=== PATIENT | female | born 1975 | race Caucasian/White ===

== ENCOUNTER 2016-05-25 17:42 | Emergency (ER) | payer OTHER ==
[~2016-05-25] VITALS: Ht 152 cm; Wt 113.4 kg
--- NOTE | ~2016-05-25 | EKG ---
[place], [place] ELECTROCARDIOGRAM REPORT NAME: ALINE BAZZI UNIT #: [id number] ROOM: DOCTOR: JANES BROOKS MD BIRTHDATE: [birth year] DOS: 05/25/2016 TIME: 1757 hours. Normal sinus rhythm at 61 beats per minute. The tracing is normal. No previous tracing is available for comparison. JANES BROOKS MD CM:EKGRPT:ELECTROCARDIOGRAM REPORT 1708 JANES BROOKS MD
[~2016-05-25 17:42] MED LIST: AMOXIL500 MG PO; ATARAX25 MG PO; BACTRIM DS 8001 TA1 PO; BACTRIM DS 8001 TAB PO; CLEOCIN150 MG PO; CLINDAMYCIN HC300 MG PO; HYDROCODONE BIT1 T11 PO; LOMOTIL 0.025 M1 TA1 PO; MACROBID100 M1 PO; MEDROL DOSEPAK4 MG PO; MOBIC15 MG PO; MOTRIN800 MG PO; Motrin,Rufen800 MG PO; NKHM PO; NORCO 325 MG-51 TAB PO; NORFLEX100 MG PO; PEN-VEE K500 MG PO; PEPCID20 MG PO; PERIDEX 480 ML480 ML PO; PHENERGAN25 MG RC; PREDNISONE20 MG PO; PYRIDIUM200 M1 PO; REGLAN10 MG PO; TRAMADOL HCL50 MG PO; ULTRAM50 MG PO; VICODIN 500 MG-1 TAB PO; ZITHROMAX250 MG PO; ZOFRAN ODT4 MG SL; ZOFRAN4 MG PO; ZYRTEC10 MG PO
[2016-05-25 18:13] LABS: BASO # 0.1 10*3/uL (0.0-0.1); EOS # 0.4 10*3/uL (0.0-0.4); EOS % 6.1 % (1.0-4.0); HEMATOCRIT 39.6 % (37.0-47.0); HEMOGLOBIN 12.4 g/dl (12.0-16.0); LYMPH # 2.5 10*3/uL (1.3-4.4); LYMPH % 34.1 % (27.0-41.0); MEAN CORPUSCULAR HGB 23.5 pg (27.0-31.0); MEAN CORPUSCULAR HGB CONC 31.3 g/dl (33.0-37.0); MEAN PLATELET VOLUME 9.3 fl (9.6-12.3); MONO # 0.5 10*3/uL (0.1-1.0); MONO % 6.6 % (3.0-9.0); NEUT # 3.8 10*3/uL (2.3-7.9); NEUT % 52.1 % (47.0-73.0); PLATELET COUNT AUTOMATED 226 10*3/uL (130-400); RED BLOOD COUNT 5.28 10*6/uL (4.10-5.10); RED CELL DISTRI WIDTH 14.8 % (0-14.5); WHITE BLOOD COUNT 7.3 10*3/uL (4.8-10.8)
[2016-05-25 18:29] LABS: ALBUMIN 3.5 gm/dl (3.1-4.5); ALKALINE PHOSPHATASE 62 U/L (45-117); BILIRUBIN, TOTAL 0.3 mg/dl (0.2-1.0); BUN 16 mg/dl (7-24); CARBON DIOXIDE 27 mmol/L (21-32); CHLORIDE 109 mmol/L (98-107); EST GLOM FILT AFRICAN AMERICAN > 60 ml/min; GLUCOSE 106 mg/dL (65-99); POTASSIUM 4.3 mmol/L (3.5-5.1); SGOT/AST 16 IU/L (3-35); SGPT/ALT 38 U/L (12-78); SODIUM 144 mmol/L (136-145); TOTAL PROTEIN 7.1 gm/dL (6.4-8.2)
[2016-05-25 18:38] VITALS: BP 165/96
== END 2016-05-25 19:18 | disposition home or self-care (01) ==
LOC: ED 17:42
PROVIDERS: Nurse Practitioner Family
DX: R07.89 Other chest pain (principal); Z98.890 Other specified postprocedural states; Z98.51 Tubal ligation status

== ENCOUNTER 2016-05-30 17:38 | Emergency (ER) | payer OTHER ==
[~2016-05-30] VITALS: Ht 157.4 cm; Wt 103.0 kg
[2016-05-30 17:46] VITALS: BP 175/87
[2016-05-30] MEDS ORDERED: ZOFRAN4 MG PO (18:51)
== END 2016-05-30 18:59 | disposition home or self-care (01) ==
LOC: ED 17:38
DX: G43.909 Migraine, unspecified, not intractable, without status migrainosus (principal); R03.0 Elevated blood-pressure reading, without diagnosis of hypertension; Z90.49 Acquired absence of other specified parts of digestive tract

== ENCOUNTER 2016-06-08 12:46 | Inpatient (IN) | payer OTHER ==
[2016-06-08] VITALS (9 sets, daily range): BP systolic 127–185; BP diastolic 70–92
[~2016-06-08] VITALS: Ht 157.5 cm; Wt 103.2 kg
--- NOTE | ~2016-06-08 | ST ---
[place], [place] EXERCISE STRESS TEST REPORT NAME: ALINE BAZZI UNIT #: [id number] ROOM: [facility] DOCTOR: DELROY BOTELLO MD BIRTHDATE: [birth year] DOS: PHARMACOLOGIC STRESS TEST INDICATIONS: Atypical chest pain. PROCEDURE: The patient was given a rapid infusion of regadenoson 0.4 mg intravenously followed by a saline flush. She experienced a bad taste in her mouth and some chest squeezing with the infusion. Her resting heart rate of 61 maribel to 91. The resting blood pressure of 168/90 fell to 144/92. Her electrocardiogram was normal at rest. With the infusion, no further changes occurred. 40 seconds after the infusion, she was given regadenoson intravenously. IMPRESSION: 1. Well tolerated infusion of regadenoson. 2. Radionuclide injected. Please see the separately reported imaging results for further details of the patient's stress test results. DELROY BOTELLO MD CM:STRESS:EXERCISE STRESS TEST REPORT 1306 0102 DELROY BOTELOL MD
--- NOTE | ~2016-06-08 | CON ---
[place], [place] REPORT OF CONSULTATION NAME: JULIA HARRIS UNIT #: [id number] ROOM: [facility] DOCTOR: DELROY BOTELLO MD BIRTHDATE: [birth year] DOS: 06/08/2016 REASON FOR CONSULTATION: Chest pain. HISTORY OF PRESENT ILLNESS: Julia Harris is a 49-year-old woman who has a history of deafness. She reportedly had scarlet fever as an and this resulted in hearing loss. She communicates by sign language. She was the source of my information and we communicated by riding on a tablet. The patient states that for the last 9 days, she has had a squeezing pain in her chest. It radiates into her back. It is not associated with any other symptoms and she specifically denies dyspnea, diaphoresis or pleuritic pains. Nothing makes it better or worse and it has been persistent since its onset. She was scheduled to have an outpatient stress test by Dr. Paulino, but today her pain became more intense and therefore she came to the Emergency Room. In the Emergency Room, her initial cardiac biomarkers were normal and her electrocardiogram showed no acute changes. The patient denies any previous history of heart disease, high blood pressure, diabetes mellitus or stroke. FAMILY HISTORY: Positive for several family members having cancer. There are some family members who had heart disease at a relatively young age on her mother's side. REVIEW OF SYSTEMS: The patient denies diplopia or loss of vision. She denies focal weakness. She denies lightheadedness or syncope. She denies trouble breathing, nausea or vomiting. She denies fevers, chills, sweats or recent weight change. She denies any bleeding from any site. She denies any peripheral edema. The remainder of the review of systems is negative except as noted above. MEDICATIONS PRIOR TO ADMISSION: None. ALLERGIES: The patient has no known drug allergies. SOCIAL HISTORY: The patient does not drink alcohol or consume cigarettes. PHYSICAL EXAMINATION: GENERAL: The patient is an overweight white female who is awake, alert and oriented. VITAL SIGNS: Pulse is 69 and regular, blood pressure is 151/86. She is afebrile, oxygen saturation is 100% on room air. She weighs 103.2 kilograms with a body mass index of 41.6. HEENT: Normocephalic, atraumatic. Extraocular muscles are intact. Sclerae are clear. Pupils are equal, round and react to light. The oral mucosa is moist. Tongue is midline. NECK: Supple. She has no jugular distention. Carotids are full without bruits. She has no neck or supraclavicular masses. There was no thyromegaly. LUNGS: Respirations are unlabored. Chest is clear to auscultation and percussion. She has no presacral edema. She does have some anterior chest wall [place], [place] REPORT OF CONSULTATION NAME: JULIA HARRIS UNIT #: [id number] ROOM: [facility] DOCTOR: DELROY BOTELLO MD BIRTHDATE: [birth year] tenderness, which reproduces her pains. There is no point tenderness present. CARDIOVASCULAR: Her heart has a regular rhythm with a soft S4 gallop, but no S3 or murmur. The PMI is not displaced. She has no precordial heave, lift or thrill. ABDOMEN: Soft and normally active without masses, organomegaly or bruits. EXTREMITIES: Showed no edema. Peripheral pulses are easily palpable bilaterally. LABORATORY DATA: I reviewed her electrocardiogram, which showed sinus rhythm and was a normal tracing. Chest x-ray shows normal heart size. The lungs are clear without any infiltrates. Initial troponin levels are normal. Hemoglobin is 13.2, white count 8300, platelet count 260,000. Sodium is 141, potassium 3.9, BUN and creatinine are 7 and 1.07 respectively. Glucose is 71. IMPRESSION: 1. Precordial chest pain, which is partially exacerbated by palpation of the anterior chest. Most likely, this represents a musculoskeletal pain, especially since it has been present for over a week, almost continuously. 2. Family history of heart disease. 3. No obvious risk factors aside from the above. 4. 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 PLAN: We will follow serial enzymes overnight and continue her on a school lunch monitor. If there are no problems, then we will plan on an exercise myocardial perfusion study in the morning. Further recommendations depend upon the results of the stress test. We thank Dr. Paulino in the hospitalist group for asking our advice regarding her assessment. DELROY BOTELLO MD CM:CONSTR:REPORT OF CONSULTATION 1808 06/10/16 0959 interface
--- NOTE | ~2016-06-08 | ST ---
[place], [place] EXERCISE STRESS TEST REPORT NAME: ALINE BAZZI UNIT #: [id number] ROOM: 501 DOCTOR: DELROY BOTELLO MD BIRTHDATE: [birth year] DOS: 06/09/2016 CARDIOLOGY PROGRESS NOTE SUBJECTIVE: The patient was seen today, 06/09/2016, just prior to her stress test. The patient had no further problems overnight. Vital signs remained stable with mild hypertension. Hemoglobin was 11.9. Cardiac biomarkers were normal. PHYSICAL EXAMINATION: VITAL SIGNS: On exam today, her pulse is 61 and regular, blood pressure is 168/90. HEENT: Normocephalic, atraumatic. NECK: Her neck is supple. She has no jugular distention. Carotids are full. LUNGS: Respirations are unlabored. Her chest is clear to auscultation and percussion. HEART: Her heart has a regular rhythm with a fourth heart sound, but no third heart sound or murmur. EXTREMITIES: Showed no edema. IMPRESSION: Atypical chest pain. PLAN: We will proceed with a pharmacologic stress test. An exercise test had been scheduled, but no one was available to do sign language for her while she was on the treadmill and so we could not adequately instruct her about treadmill exercise. A pharmacologic stress test was felt to be safer. We will review the results of the stress test when available and make further recommendations at that time. I thank the hospitalist service for asking our advice regarding her care. DELROY BOTELLO MD CM:STRESS:EXERCISE STRESS TEST REPORT 1305 0056 DELROY BOTELLO MD
[2016-06-08 13:39] LABS: BASO # 0.1 10*3/uL (0.0-0.1); BASO % 1.4 % (0.0-1.0); EOS # 0.5 10*3/uL (0.0-0.4); EOS % 5.8 % (1.0-4.0); HEMATOCRIT 43.1 % (37.0-47.0); HEMOGLOBIN 13.2 g/dl (12.0-16.0); LYMPH # 3.9 10*3/uL (1.3-4.4); LYMPH % 47.3 % (27.0-41.0); MEAN CELL VOLUME 75.9 fl (81.0-99.0); MEAN CORPUSCULAR HGB 23.2 pg (27.0-31.0); MEAN CORPUSCULAR HGB CONC 30.6 g/dl (33.0-37.0); MEAN PLATELET VOLUME 9.8 fl (9.6-12.3); MONO # 0.7 10*3/uL (0.1-1.0); MONO % 7.8 % (3.0-9.0); NEUT # 3.1 10*3/uL (2.3-7.9); NEUT % 37.5 % (47.0-73.0); PLATELET COUNT AUTOMATED 260 10*3/uL (130-400); RED BLOOD COUNT 5.68 10*6/uL (4.10-5.10); RED CELL DISTRI WIDTH 14.6 % (0-14.5); WHITE BLOOD COUNT 8.3 10*3/uL (4.8-10.8)
[2016-06-08 13:59] LABS: ALBUMIN 3.7 gm/dl (3.1-4.5); ALKALINE PHOSPHATASE 69 U/L (45-117); BILIRUBIN, TOTAL 0.4 mg/dl (0.2-1.0); BUN 7 mg/dl (7-24); CARBON DIOXIDE 25 mmol/L (21-32); CHLORIDE 105 mmol/L (98-107); EST GLOM FILT AFRICAN AMERICAN > 60 ml/min; GLUCOSE 71 mg/dL (65-99); POTASSIUM 3.9 mmol/L (3.5-5.1); SGOT/AST 48 IU/L (3-35); SGPT/ALT 62 U/L (12-78); SODIUM 141 mmol/L (136-145); TOTAL PROTEIN 7.5 gm/dL (6.4-8.2)
[2016-06-08 14:03] LABS: TROPONIN I < 0.015 ng/ml (<0.5)
[2016-06-08 18:06] LABS: URINE AMPHETAMINES < 1000 (1000ng/ml); URINE BARBITURATES < 200 (200ng/ml); URINE COCAINE < 300 (300ng/ml)
[2016-06-08 18:25] LABS: CKMB 1.4 ng/ml (0.5-3.6); CPK 217 U/L (26-192); TROPONIN I < 0.015 ng/ml (<0.5)
[2016-06-09] VITALS: BP 149/79
[2016-06-09 00:56] LABS: CKMB 1.6 ng/ml (0.5-3.6); CPK 190 U/L (26-192); TROPONIN I < 0.015 ng/ml (<0.5)
[2016-06-09 06:03] LABS: BASO # 0.1 10*3/uL (0.0-0.1); BASO % 1.2 % (0.0-1.0); EOS # 0.6 10*3/uL (0.0-0.4); EOS % 8.7 % (1.0-4.0); HEMATOCRIT 38.5 % (37.0-47.0); HEMOGLOBIN 11.9 g/dl (12.0-16.0); LYMPH # 3.1 10*3/uL (1.3-4.4); LYMPH % 46.5 % (27.0-41.0); MEAN CELL VOLUME 75.3 fl (81.0-99.0); MEAN CORPUSCULAR HGB 23.3 pg (27.0-31.0); MEAN CORPUSCULAR HGB CONC 30.9 g/dl (33.0-37.0); MEAN PLATELET VOLUME 10.1 fl (9.6-12.3); MONO # 0.5 10*3/uL (0.1-1.0); NEUT # 2.4 10*3/uL (2.3-7.9); NEUT % 36.4 % (47.0-73.0); PLATELET COUNT AUTOMATED 214 10*3/uL (130-400); RED BLOOD COUNT 5.11 10*6/uL (4.10-5.10); RED CELL DISTRI WIDTH 14.4 % (0-14.5); WHITE BLOOD COUNT 6.6 10*3/uL (4.8-10.8)
[2016-06-09 06:04] LABS: CKMB 0.9 ng/ml (0.5-3.6); CPK 149 U/L (26-192)
[2016-06-09 06:06] LABS: TROPONIN I < 0.015 ng/ml (<0.5)
[2016-06-09 06:13] LABS: HEMOGLOBIN A1c 5.2 % (4.8-5.6)
[2016-06-09 06:28] LABS: PROTHROMBIN TIME 10.2 SECONDS (9.0-12.4)
[2016-06-09 06:30] LABS: ALBUMIN 3.2 gm/dl (3.1-4.5); ALKALINE PHOSPHATASE 57 U/L (45-117); BILIRUBIN, TOTAL 0.3 mg/dl (0.2-1.0); BUN 11 mg/dl (7-24); CARBON DIOXIDE 26 mmol/L (21-32); CHLORIDE 108 mmol/L (98-107); CHOLESTEROL 178 mg/dL (<200); EST GLOM FILT AFRICAN AMERICAN > 60 ml/min; GLUCOSE 95 mg/dL (65-99); HDL CHOLESTEROL 30 mg/dl (40-60); LDL CHOLESTEROL 107 mg/dL (9-159); MAGNESIUM 2.1 mg/dL (1.5-2.1); PHOSPHOROUS 3.8 mg/dL (2.5-4.9); POTASSIUM 3.6 mmol/L (3.5-5.1); SGOT/AST 26 IU/L (3-35); SGPT/ALT 45 U/L (12-78); SODIUM 143 mmol/L (136-145); TOTAL PROTEIN 6.1 gm/dL (6.4-8.2); TRIGLYCERIDES 207 mg/dl (<150); VLDL CHOLESTEROL 41 mg/dL (6-40)
[2016-06-09 07:14] LABS: VITAMIN D, 25-HYDROXY 21.6 ng/mL (30-100)
[2016-06-09 07:15] LABS: FOLIC ACID 7.62 ng/mL (>5.38)
[2016-06-09 08:00] VITALS: BP 140/98
[2016-06-09 16:00] VITALS: BP 150/88
[2016-06-09] MEDS ORDERED: HYDR25T PO (17:40)
== END 2016-06-09 18:45 | disposition home or self-care (01) | DRG 305 ==
LOC: ED 12:46 → EDHOLD 15:18 → 5E 15:18
PROVIDERS: Family Medicine; Nurse Practitioner Family
DX: I16.1 Hypertensive emergency (principal); E44.0 Moderate protein-calorie malnutrition; N18.3 Chronic kidney disease, stage 3 (moderate); Z68.41 Body mass index [BMI] 40.0-44.9, adult; I12.9 Hypertensive chronic kidney disease with stage 1 through stage 4 chronic kidney disease, or unspecified chronic kidney disease; G43.909 Migraine, unspecified, not intractable, without status migrainosus; H91.93 Unspecified hearing loss, bilateral; Z90.49 Acquired absence of other specified parts of digestive tract; Z98.51 Tubal ligation status; Z98.890 Other specified postprocedural states; Z82.49 Family history of ischemic heart disease and other diseases of the circulatory system; Z83.3 Family history of diabetes mellitus; Z80.8 Family history of malignant neoplasm of other organs or systems

== ENCOUNTER 2016-08-27 11:51 | Inpatient (IN) | payer OTHER ==
[~2016-08-27] VITALS: Ht 157.5 cm; Wt 106.2 kg
[~2016-08-27 11:51] MED LIST changes: +HYDR25T PO
[2016-08-27 12:10] VITALS: BP 155/98
[2016-08-27 12:22] LABS: BASO # 0.1 10*3/uL (0.0-0.1); EOS # 0.5 10*3/uL (0.0-0.4); EOS % 6.6 % (1.0-4.0); HEMOGLOBIN 12.2 g/dl (12.0-16.0); LYMPH % 42.7 % (27.0-41.0); MEAN CELL VOLUME 71.7 fl (81.0-99.0); MEAN CORPUSCULAR HGB 22.4 pg (27.0-31.0); MEAN CORPUSCULAR HGB CONC 31.3 g/dl (33.0-37.0); MEAN PLATELET VOLUME 9.2 fl (9.6-12.3); MONO # 0.5 10*3/uL (0.1-1.0); MONO % 6.8 % (3.0-9.0); NEUT % 42.8 % (47.0-73.0); PLATELET COUNT AUTOMATED 243 10*3/uL (130-400); RED BLOOD COUNT 5.44 10*6/uL (4.10-5.10); WHITE BLOOD COUNT 7.1 10*3/uL (4.8-10.8)
[2016-08-27 12:33] LABS: PROTHROMBIN TIME 10.3 SECONDS (9.0-12.4)
[2016-08-27 12:38] LABS: ALBUMIN 3.7 gm/dl (3.1-4.5); ALKALINE PHOSPHATASE 65 U/L (45-117); BILIRUBIN, TOTAL 0.4 mg/dl (0.2-1.0); BUN 12 mg/dl (7-24); C-REACTIVE PROTEIN 0.31 MG/DL (0-0.3); CARBON DIOXIDE 25 mmol/L (21-32); CHLORIDE 107 mmol/L (98-107); CPK 121 U/L (26-192); EST GLOM FILT AFRICAN AMERICAN > 60 ml/min; GLUCOSE 84 mg/dL (65-99); MAGNESIUM 2.3 mg/dL (1.5-2.1); POTASSIUM 3.7 mmol/L (3.5-5.1); SGOT/AST 37 IU/L (3-35); SGPT/ALT 48 U/L (12-78); SODIUM 142 mmol/L (136-145); TOTAL PROTEIN 7.4 gm/dL (6.4-8.2)
[2016-08-27 12:40] LABS: TROPONIN I < 0.015 ng/ml (<0.045)
[2016-08-27 14:25] VITALS: BP 143/98
[2016-08-27 16:26] VITALS: BP 174/79
[2016-08-27 16:45] VITALS: BP 174/78
[2016-08-27 18:09] LABS: CKMB 0.7 ng/ml (0.5-3.6); CPK 102 U/L (26-192)
[2016-08-27 18:12] LABS: TROPONIN I < 0.015 ng/ml (<0.045)
[2016-08-27 20:00] VITALS: BP 150/80
[2016-08-28] VITALS: BP 120/70
[2016-08-28 00:53] LABS: CKMB 0.8 ng/ml (0.5-3.6); CPK 119 U/L (26-192)
[2016-08-28 01:01] LABS: TROPONIN I < 0.015 ng/ml (<0.045)
[2016-08-28 06:12] LABS: BASO # 0.1 10*3/uL (0.0-0.1); BASO % 0.8 % (0.0-1.0); EOS # 0.6 10*3/uL (0.0-0.4); EOS % 10.4 % (1.0-4.0); HEMATOCRIT 37.4 % (37.0-47.0); HEMOGLOBIN 11.5 g/dl (12.0-16.0); LYMPH # 2.8 10*3/uL (1.3-4.4); LYMPH % 45.4 % (27.0-41.0); MEAN CELL VOLUME 73.2 fl (81.0-99.0); MEAN CORPUSCULAR HGB 22.5 pg (27.0-31.0); MEAN CORPUSCULAR HGB CONC 30.7 g/dl (33.0-37.0); MEAN PLATELET VOLUME 9.5 fl (9.6-12.3); MONO # 0.5 10*3/uL (0.1-1.0); MONO % 8.3 % (3.0-9.0); NEUT # 2.1 10*3/uL (2.3-7.9); NEUT % 34.9 % (47.0-73.0); PLATELET COUNT AUTOMATED 230 10*3/uL (130-400); RED BLOOD COUNT 5.11 10*6/uL (4.10-5.10); RED CELL DISTRI WIDTH 14.8 % (0-14.5); WHITE BLOOD COUNT 6.1 10*3/uL (4.8-10.8)
[2016-08-28 06:24] LABS: CPK 90 U/L (26-192)
[2016-08-28 06:34] LABS: CKMB < 0.5 ng/ml (0.5-3.6); TROPONIN I < 0.015 ng/ml (<0.045)
[2016-08-28 06:45] LABS: PROTHROMBIN TIME 10.2 SECONDS (9.0-12.4)
[2016-08-28 07:06] LABS: BUN 12 mg/dl (7-24); CARBON DIOXIDE 31 mmol/L (21-32); CHLORIDE 106 mmol/L (98-107); CHOLESTEROL 179 mg/dL (<200); EST GLOM FILT AFRICAN AMERICAN > 60 ml/min; GLUCOSE 100 mg/dL (65-99); POTASSIUM 3.8 mmol/L (3.5-5.1); SODIUM 141 mmol/L (136-145); TRIGLYCERIDES 166 mg/dl (<150); VLDL CHOLESTEROL 33 mg/dL (6-40)
[2016-08-28 07:14] LABS: FREE T4 1.05 ng/dl (0.76-1.46); HDL CHOLESTEROL 31 mg/dl (40-60); LDL CHOLESTEROL 115 mg/dL (9-159)
[2016-08-28 08:00] VITALS: BP 140/88
[2016-08-28 08:02] LABS: VITAMIN D, 25-HYDROXY 19.9 ng/mL (30-100)
[2016-08-28 08:03] LABS: FOLIC ACID 5.14 ng/mL (>5.38)
[2016-08-28] MEDS ORDERED: VITAMIN D-32000 UNI1 PO (11:06)
[2016-08-28 12:00] VITALS: BP 143/67
[2016-08-28] MEDS ORDERED: HYDR25T PO (12:37)
== END 2016-08-28 15:54 | disposition home or self-care (01) | DRG 880 ==
LOC: ED 11:51 → EDHOLD 14:40 → 4E 14:40
PROVIDERS: Emergency Medicine; Internal Medicine
DX: F41.9 Anxiety disorder, unspecified (principal); E44.0 Moderate protein-calorie malnutrition; N18.3 Chronic kidney disease, stage 3 (moderate); E83.41 Hypermagnesemia; Z68.41 Body mass index [BMI] 40.0-44.9, adult; R06.00 Dyspnea, unspecified; H91.93 Unspecified hearing loss, bilateral; I12.9 Hypertensive chronic kidney disease with stage 1 through stage 4 chronic kidney disease, or unspecified chronic kidney disease

== ENCOUNTER 2016-10-04 16:19 | Emergency (ER) | payer OTHER ==
[~2016-10-04] VITALS: Wt 90.7 kg
[~2016-10-04 16:19] MED LIST changes: +VITAMIN D-32000 UNI1 PO
[2016-10-04 16:25] VITALS: BP 138/80
[2016-10-04] MEDS ORDERED: Motrin,Rufen800 MG PO (17:27)
== END 2016-10-04 17:30 | disposition home or self-care (01) ==
LOC: ED 16:19
DX: M25.562 Pain in left knee (principal); Z90.49 Acquired absence of other specified parts of digestive tract

== ENCOUNTER 2016-10-10 17:10 | Emergency (ER) | payer OTHER ==
[~2016-10-10] VITALS: Ht 157.4 cm; Wt 98.0 kg
[2016-10-10 17:15] VITALS: BP 180/90
[2016-10-10] MEDS ORDERED: NAPROSYN500 MG PO (17:26)
== END 2016-10-10 18:36 | disposition home or self-care (01) ==
LOC: ED 17:10
DX: S93.401A Sprain of unspecified ligament of right ankle, initial encounter (principal); R03.0 Elevated blood-pressure reading, without diagnosis of hypertension; I12.9 Hypertensive chronic kidney disease with stage 1 through stage 4 chronic kidney disease, or unspecified chronic kidney disease; N18.3 Chronic kidney disease, stage 3 (moderate); E55.9 Vitamin D deficiency, unspecified; Z98.890 Other specified postprocedural states; Z98.51 Tubal ligation status; Z79.899 Other long term (current) drug therapy; X58.XXXA Exposure to other specified factors, initial encounter; Y93.89 Activity, other specified; Y92.89 Other specified places as the place of occurrence of the external cause; Y99.9 Unspecified external cause status

== ENCOUNTER → 2016-11-04 | Outpatient (CLI) | payer OTHER ==
[~2016-11-04] MED LIST changes: +NAPROSYN500 MG PO
[2016-11-04 13:53] LABS: BASO # 0.1 10*3/uL (0.0-0.1); BASO % 1.1 % (0.0-1.0); EOS # 0.5 10*3/uL (0.0-0.4); EOS % 7.4 % (1.0-4.0); HEMOGLOBIN 13.5 g/dl (12.0-16.0); LYMPH # 2.6 10*3/uL (1.3-4.4); MEAN CELL VOLUME 71.7 fl (81.0-99.0); MEAN CORPUSCULAR HGB CONC 32.1 g/dl (33.0-37.0); MEAN PLATELET VOLUME 9.6 fl (9.6-12.3); MONO # 0.3 10*3/uL (0.1-1.0); MONO % 4.7 % (3.0-9.0); NEUT # 2.8 10*3/uL (2.3-7.9); NEUT % 44.6 % (47.0-73.0); PLATELET COUNT AUTOMATED 240 10*3/uL (130-400); RED BLOOD COUNT 5.86 10*6/uL (4.10-5.10); RED CELL DISTRI WIDTH 15.3 % (0-14.5); WHITE BLOOD COUNT 6.2 10*3/uL (4.8-10.8)
[2016-11-04 14:20] LABS: ALBUMIN 3.7 gm/dl (3.1-4.5); ALKALINE PHOSPHATASE 71 U/L (45-117); BILIRUBIN, TOTAL 0.6 mg/dl (0.2-1.0); BUN 10 mg/dl (7-24); CARBON DIOXIDE 28 mmol/L (21-32); CHLORIDE 104 mmol/L (98-107); EST GLOM FILT AFRICAN AMERICAN > 60 ml/min; GLUCOSE 87 mg/dL (65-99); POTASSIUM 3.7 mmol/L (3.5-5.1); SGOT/AST 36 IU/L (3-35); SGPT/ALT 53 U/L (12-78); SODIUM 140 mmol/L (136-145); TOTAL PROTEIN 7.3 gm/dL (6.4-8.2)
== END | disposition home or self-care (01) ==
LOC: LAB 13:30
PROVIDERS: Internal Medicine
DX: R10.31 Right lower quadrant pain (principal)

== ENCOUNTER → 2016-12-31 | Outpatient (CLI) | payer OTHER | END | disposition home or self-care (01) | LOC: US 14:00 | DX: N20.0 Calculus of kidney (principal) ==

== ENCOUNTER 2017-07-14 18:53 | Emergency (ER) | payer OTHER ==
[~2017-07-14] VITALS: Ht 157.4 cm; Wt 108.9 kg
[2017-07-14 19:25] VITALS: BP 193/90
[2017-07-14] MEDS ORDERED: NAPROSYN500 MG PO (20:57)
== END 2017-07-14 21:04 | disposition home or self-care (01) ==
LOC: ED 18:53
DX: S93.402A Sprain of unspecified ligament of left ankle, initial encounter (principal); I12.9 Hypertensive chronic kidney disease with stage 1 through stage 4 chronic kidney disease, or unspecified chronic kidney disease; N18.3 Chronic kidney disease, stage 3 (moderate); W18.31XA Fall on same level due to stepping on an object, initial encounter; Y93.89 Activity, other specified; Y92.89 Other specified places as the place of occurrence of the external cause; Y99.8 Other external cause status

== ENCOUNTER 2017-11-09 10:49 | Emergency (ER) | payer OTHER ==
[~2017-11-09] VITALS: Ht 160 cm; Wt 90.7 kg
[2017-11-09 10:55] VITALS: BP 127/83
[2017-11-09] MEDS ORDERED: NAPROSYN500 MG PO (11:02)
== END 2017-11-09 12:17 | disposition home or self-care (01) ==
LOC: ED 10:49
DX: M25.551 Pain in right hip (principal); I12.9 Hypertensive chronic kidney disease with stage 1 through stage 4 chronic kidney disease, or unspecified chronic kidney disease; N18.3 Chronic kidney disease, stage 3 (moderate)

== ENCOUNTER 2017-11-17 12:49 | Inpatient (IN) | payer OTHER ==
[~2017-11-17] VITALS: Ht 160 cm; Wt 102.6 kg
--- NOTE | ~2017-11-17 | CON ---
[place], [place] REPORT OF CONSULTATION NAME: ALINE BAZZI UNIT #: [id number] ROOM: 426 DOCTOR: DELROY BOTELLO MD BIRTHDATE: [birth year] DOS: 11/18/2017 REASON FOR CONSULTATION: Chest pain. HISTORY OF PRESENT ILLNESS: The patient is a 42-year-old woman who does have a history of chest pain. She was evaluated by Dr. Davila in 2008, at which time catheterization showed minor circumflex disease, but no other significant occlusive diseases. I evaluated her in May 2016 when she presented with a squeezing pain in her chest, which radiated to her back. It was not associated with any other symptoms and she specifically denied dyspnea, diaphoresis or pleuritic pain. Nothing made it better or worse. A stress test done at that time was a normal study with normal myocardial perfusion and an ejection fraction of 69%. At about 8:00 on the morning of 11/17/2017, she began to have chest pain while at rest. The pain started in her left shoulder and radiated into her left anterior chest. She rated it at 10/10 and described it as sharp and stabbing. The pain did radiate down her left arm and got worse with exertion. It was associated with dyspnea and was not initially relieved by nitroglycerin. The pain did subside on its own after an hour or so. She was treated with aspirin and nitrates. Electrocardiogram showed no acute change and serial cardiac biomarkers were normal. On 11/18/2017, she did have a pharmacologic stress test. It did demonstrate a large anterior lateral and apical reversible defect associated with mild transient left ventricular cavity dilation post-stress. The distal anterior wall was mildly hypokinetic and overall left ventricular systolic function was preserved with an ejection fraction of 75%. Compared to the study done 1 year previously, this defect was new and probably does represent disease involving the LAD and circumflex coronary arteries. I explained the findings to the patient and recommended that she undergo cardiac catheterization. I explained the risks of catheterization including heart attack, stroke, , bleeding, bruising, dye reaction, infection, etc. and she has agreed to proceed. PAST MEDICAL HISTORY: Includes scarlet fever as an infant, which resulted in hearing loss. The patient does communicate by sign language. I used a sign strategy lead to allow my communication with the patient when I obtained her consent for catheterization. The patient denies any previous history of heart disease, high blood pressure, diabetes or stroke. FAMILY HISTORY: Positive for several family members having cancer. Her brother had a heart attack at age 44 and there are several family members on her mother's side who had heart disease at a young age. REVIEW OF SYSTEMS: The patient denies diplopia or loss of vision. She denies focal weakness. She denies lightheadedness or syncope. She is deaf and communicates by sign. She denies shortness of breath, nausea or vomiting at this time. She has not had any recent fevers, chills, sweats or weight change. She denies hemoptysis or hematemesis. She denies change in bowel or bladder habits and denies blood in her stools or urine. She denies any peripheral [place], [place] REPORT OF CONSULTATION NAME: ALINE BAZZI UNIT #: [id number] ROOM: 426 DOCTOR: DELROY BOTELLO MD BIRTHDATE: [birth year] edema. She denies any skin rashes. The remainder of the review of systems is negative, except as noted above. MEDICATION PRIOR TO ADMISSION: Naproxen 500 mg b.i.d. ALLERGIES: She has no known drug allergies. SOCIAL HISTORY: The patient does not drink alcohol or smoke cigarettes. PHYSICAL EXAMINATION: GENERAL: The patient is middle age white female who is awake, alert and oriented. VITAL SIGNS: Pulse is 66 and regular, blood pressure is 144/78. She is afebrile. She weighs 102.6 kg and has a body mass index of 40.1. HEENT: Normocephalic and atraumatic. Extraocular muscles are intact. Sclerae are clear. Pupils equal, round and react to light. The oral mucosa is moist. Tongue is midline. NECK: Supple. She has no jugular distention or hepatojugular reflux. Carotids are full without bruits. RESPIRATORY: Respirations are unlabored. Her chest is clear to auscultation and percussion. She has no presacral edema or chest wall tenderness. CARDIOVASCULAR: Her heart has a regular rhythm with an S4 gallop, but no S3 or murmur. The PMI is not displaced. There is no precordial heave, lift or thrill. ABDOMEN: Soft and normally active without masses, organomegaly or bruits. EXTREMITIES: Showed no edema. Peripheral pulses are palpable in the feet bilaterally. LABORATORY DATA: Her electrocardiogram showed sinus rhythm with left ventricular hypertrophy, but no acute ST or T-wave changes. Hemoglobin is 13.2, hematocrit 43.7, white count 8100, platelet count 216,000. D-dimer was normal at 0.32. Sodium is 139, potassium 3.7, chloride 105, CO2 of 27, BUN 14, creatinine 0.92 with GFR greater than 60. Total cholesterol is 205 with LDL 148, HDL of 37 and triglycerides 101. TSH is normal at 1.07. IMPRESSION: 1. Unstable angina. The patient shows no signs of an acute myocardial infarction, but she does have a new anterior lateral and apical ischemic defect, which was not present one year ago, associated with mild hypokinesis in the affected areas. Overall, left ventricular systolic function is preserved. 2. Probable hypertension. 3. 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 She communicates by sign language. PLAN: I discussed the patient's problems with her and she has agreed to proceed with catheterization as noted above. We will transfer her to the [facility] in the morning for catheterization and potential revascularization. In the meantime, she will be treated with aspirin, beta blockers and statins. [place], [place] REPORT OF CONSULTATION NAME: ALINE BAZZI UNIT #: [id number] ROOM: 426 DOCTOR: DELROY BOTELLO MD BIRTHDATE: [birth year] I thank the hospitalist physicians for asking our advice regarding her care. DELROY BOTELLO MD CM:CONSTR:REPORT OF CONSULTATION 1713 12/07/17 0848 interface
[2017-11-17 12:54] VITALS: BP 154/94
[2017-11-17 13:09] LABS: BASO # 0.1 10*3/uL (0.0-0.1); EOS # 0.7 10*3/uL (0.0-0.4); EOS % 9.6 % (1.0-4.0); HEMATOCRIT 40.8 % (37.0-47.0); HEMOGLOBIN 12.8 g/dl (12.0-16.0); LYMPH # 2.9 10*3/uL (1.3-4.4); MEAN CELL VOLUME 74.7 fl (81.0-99.0); MEAN CORPUSCULAR HGB 23.4 pg (27.0-31.0); MEAN CORPUSCULAR HGB CONC 31.4 g/dl (33.0-37.0); MEAN PLATELET VOLUME 9.5 fl (9.6-12.3); MONO # 0.4 10*3/uL (0.1-1.0); MONO % 5.8 % (3.0-9.0); NEUT # 3.3 10*3/uL (2.3-7.9); NEUT % 44.3 % (47.0-73.0); PLATELET COUNT AUTOMATED 198 10*3/uL (130-400); RED BLOOD COUNT 5.46 10*6/uL (4.10-5.10); RED CELL DISTRI WIDTH 15.6 % (0-14.5); WHITE BLOOD COUNT 7.4 10*3/uL (4.8-10.8)
[2017-11-17 13:25] LABS: ALBUMIN 3.8 gm/dl (3.1-4.5); ALKALINE PHOSPHATASE 67 U/L (45-117); BUN 15 mg/dl (7-24); CHLORIDE 108 mmol/L (98-107); CREATININE 1.01 mg/dL (0.55-1.02); SGOT/AST 29 IU/L (3-35); SGPT/ALT 58 U/L (12-78); SODIUM 141 mmol/L (136-145); TOTAL PROTEIN 6.9 gm/dL (6.4-8.2)
[2017-11-17 13:26] LABS: TROPONIN I < 0.015 ng/ml (<0.045)
[2017-11-17 13:30] VITALS: BP 135/78
[2017-11-17 14:00] VITALS: BP 149/81
[2017-11-17 14:31] VITALS: BP 140/80
[2017-11-17 15:53] VITALS: BP 178/79
[2017-11-17 20:00] VITALS: BP 152/81
[2017-11-18] VITALS: BP 156/84
[2017-11-18 07:11] LABS: BASO # 0.1 10*3/uL (0.0-0.1); EOS # 0.1 10*3/uL (0.0-0.4); EOS % 1.6 % (1.0-4.0); HEMATOCRIT 43.7 % (37.0-47.0); HEMOGLOBIN 13.2 g/dl (12.0-16.0); LYMPH # 2.4 10*3/uL (1.3-4.4); MEAN CORPUSCULAR HGB CONC 30.2 g/dl (33.0-37.0); MEAN PLATELET VOLUME 9.8 fl (9.6-12.3); MONO # 0.4 10*3/uL (0.1-1.0); NEUT # 5.1 10*3/uL (2.3-7.9); NEUT % 63.2 % (47.0-73.0); PLATELET COUNT AUTOMATED 216 10*3/uL (130-400); RED BLOOD COUNT 5.75 10*6/uL (4.10-5.10); RED CELL DISTRI WIDTH 15.5 % (0-14.5); WHITE BLOOD COUNT 8.1 10*3/uL (4.8-10.8)
[2017-11-18 07:25] LABS: BUN 14 mg/dl (7-24); CHLORIDE 105 mmol/L (98-107); CHOLESTEROL 205 mg/dL (<200); CREATININE 0.92 mg/dL (0.55-1.02); HDL CHOLESTEROL 37 mg/dl (40-60); LDL CHOLESTEROL 148 mg/dL (9-159); PHOSPHOROUS 3.5 mg/dL (2.5-4.9); POTASSIUM 3.7 mmol/L (3.5-5.1); SODIUM 139 mmol/L (136-145); TRIGLYCERIDES 101 mg/dl (<150); VLDL CHOLESTEROL 20 mg/dL (6-40)
[2017-11-18 07:34] LABS: FREE T4 1.04 ng/dl (0.76-1.46)
[2017-11-18 08:00] VITALS: BP 146/89
[2017-11-18 10:08] LABS: VITAMIN D, 25-HYDROXY 16.9 ng/mL (30-100)
[2017-11-18 16:00] VITALS: BP 144/78
[2017-11-18 20:00] VITALS: BP 130/88
[2017-11-19] VITALS: BP 116/62
[2017-11-19 06:28] LABS: BASO # 0.1 10*3/uL (0.0-0.1); BASO % 0.8 % (0.0-1.0); EOS # 0.9 10*3/uL (0.0-0.4); EOS % 10.1 % (1.0-4.0); HEMATOCRIT 43.8 % (37.0-47.0); HEMOGLOBIN 13.3 g/dl (12.0-16.0); LYMPH # 3.4 10*3/uL (1.3-4.4); LYMPH % 40.4 % (27.0-41.0); MEAN CELL VOLUME 76.7 fl (81.0-99.0); MEAN CORPUSCULAR HGB 23.3 pg (27.0-31.0); MEAN CORPUSCULAR HGB CONC 30.4 g/dl (33.0-37.0); MEAN PLATELET VOLUME 10.2 fl (9.6-12.3); MONO # 0.6 10*3/uL (0.1-1.0); MONO % 6.8 % (3.0-9.0); NEUT # 3.5 10*3/uL (2.3-7.9); NEUT % 41.5 % (47.0-73.0); PLATELET COUNT AUTOMATED 220 10*3/uL (130-400); RED BLOOD COUNT 5.71 10*6/uL (4.10-5.10); RED CELL DISTRI WIDTH 15.7 % (0-14.5); WHITE BLOOD COUNT 8.5 10*3/uL (4.8-10.8)
[2017-11-19 06:55] LABS: BUN 19 mg/dl (7-24); CHLORIDE 107 mmol/L (98-107); CREATININE 1.04 mg/dL (0.55-1.02); POTASSIUM 3.8 mmol/L (3.5-5.1); SODIUM 141 mmol/L (136-145)
[2017-11-19 08:00] VITALS: BP 129/71
[2017-12-21] MEDS ORDERED: ZOFRAN ODT4 MG SL (16:29)
[2017-12-21] MEDS ORDERED: IMDUR SA30 MG PO (16:29)
[2017-12-21] MEDS ORDERED: AMLODIPINE BESYL5 MG PO (16:29)
[2017-12-21] MEDS ORDERED: ASPIRIN81 M1 PO (16:39)
== END 2017-11-19 08:41 | disposition other institution (70) | DRG 311 ==
LOC: ED 12:49 → EDHOLD 14:42 → 4E 14:42
PROVIDERS: Emergency Medicine; Internal Medicine; Internal Medicine Cardiovascular Disease
PROC: 4A02XM4 Measurement of Cardiac Total Activity, External Approach (ICD-10-PCS; principal; 2017-11-18)
PROC: 3E073KZ Introduction of Other Diagnostic Substance into Coronary Artery, Percutaneous Approach (ICD-10-PCS; principal; 2017-11-18)
DX: I20.0 Unstable angina (principal); N18.3 Chronic kidney disease, stage 3 (moderate); E55.9 Vitamin D deficiency, unspecified; H91.90 Unspecified hearing loss, unspecified ear; I12.9 Hypertensive chronic kidney disease with stage 1 through stage 4 chronic kidney disease, or unspecified chronic kidney disease; Z82.49 Family history of ischemic heart disease and other diseases of the circulatory system; Z80.9 Family history of malignant neoplasm, unspecified; Z98.51 Tubal ligation status; Z83.3 Family history of diabetes mellitus

== ENCOUNTER 2018-02-09 15:57 | Emergency (ER) | payer OTHER ==
[~2018-02-09] VITALS: Ht 160 cm; Wt 99.3 kg
--- NOTE | ~2018-02-09 | EKG ---
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
--- NOTE | ~2018-02-09 | EKG ---
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
[~2018-02-09 15:57] MED LIST changes: +AMLODIPINE BESYL5 MG PO; +ASPIRIN81 M1 PO; +IMDUR SA30 MG PO
[2018-02-09] MEDS ORDERED: NORVASC5 MG PO (16:11)
[2018-02-09 16:23] LABS: BASO # 0.1 10*3/uL (0.0-0.1); BASO % 1.2 % (0.0-1.0); EOS # 0.3 10*3/uL (0.0-0.4); EOS % 4.2 % (1.0-4.0); HEMATOCRIT 40.9 % (37.0-47.0); LYMPH # 2.8 10*3/uL (1.3-4.4); LYMPH % 43.6 % (27.0-41.0); MEAN CELL VOLUME 76.2 fl (81.0-99.0); MEAN CORPUSCULAR HGB 24.2 pg (27.0-31.0); MEAN CORPUSCULAR HGB CONC 31.8 g/dl (33.0-37.0); MONO # 0.4 10*3/uL (0.1-1.0); MONO % 6.7 % (3.0-9.0); NEUT # 2.8 10*3/uL (2.3-7.9); NEUT % 44.1 % (47.0-73.0); PLATELET COUNT AUTOMATED 217 10*3/uL (130-400); RED BLOOD COUNT 5.37 10*6/uL (4.10-5.10); RED CELL DISTRI WIDTH 14.6 % (0-14.5); WHITE BLOOD COUNT 6.4 10*3/uL (4.8-10.8)
[2018-02-09 16:38] LABS: ALBUMIN 3.6 gm/dl (3.1-4.5); ALKALINE PHOSPHATASE 73 U/L (45-117); BUN 7 mg/dl (7-24); CHLORIDE 106 mmol/L (98-107); CREATININE 0.92 mg/dL (0.55-1.02); POTASSIUM 3.7 mmol/L (3.5-5.1); SGOT/AST 43 IU/L (3-35); SGPT/ALT 61 U/L (12-78); SODIUM 140 mmol/L (136-145); TOTAL PROTEIN 7.1 gm/dL (6.4-8.2)
[2018-02-09 16:39] LABS: TROPONIN I < 0.015 ng/ml (<0.045)
[2018-02-09 19:15] VITALS: BP 146/75
[2018-03-23] MEDS ORDERED: LOSARTAN POTASS25 M1 PO (15:00)
[2018-03-24] MEDS ORDERED: Vitamin D PO (18:58)
== END 2018-02-09 19:45 | disposition home or self-care (01) ==
LOC: ED 15:57
PROVIDERS: Emergency Medicine
DX: R07.89 Other chest pain (principal); I12.9 Hypertensive chronic kidney disease with stage 1 through stage 4 chronic kidney disease, or unspecified chronic kidney disease; N18.2 Chronic kidney disease, stage 2 (mild); E66.01 Morbid (severe) obesity due to excess calories; Z90.49 Acquired absence of other specified parts of digestive tract; Z79.82 Long term (current) use of aspirin; Z79.899 Other long term (current) drug therapy

== ENCOUNTER 2018-02-19 13:15 | Emergency (ER) | payer OTHER ==
[~2018-02-19] VITALS: Ht 160 cm; Wt 98.0 kg
[~2018-02-19 13:15] MED LIST changes: +NORVASC5 MG PO
[2018-02-19 13:20] VITALS: BP 154/51
[2018-02-19] MEDS ORDERED: CYCLOBENZAPRINE10 MG PO (13:36)
[2018-02-19] MEDS ORDERED: TYLENOL325 M1 PO (13:36)
[2018-03-23] MEDS ORDERED: LOSARTAN POTASS25 M1 PO (15:00)
[2018-03-24] MEDS ORDERED: Vitamin D PO (18:58)
== END 2018-02-19 13:39 | disposition home or self-care (01) ==
LOC: ED 13:15
DX: M54.5 Low back pain (principal); I12.9 Hypertensive chronic kidney disease with stage 1 through stage 4 chronic kidney disease, or unspecified chronic kidney disease; N18.2 Chronic kidney disease, stage 2 (mild); E66.01 Morbid (severe) obesity due to excess calories; Z79.82 Long term (current) use of aspirin; Z90.49 Acquired absence of other specified parts of digestive tract; Z98.51 Tubal ligation status; Z98.890 Other specified postprocedural states; Z79.899 Other long term (current) drug therapy

== ENCOUNTER 2018-03-08 19:00 | Emergency (ER) | payer OTHER ==
[~2018-03-08] VITALS: Ht 157.4 cm; Wt 95.3 kg
[~2018-03-08 19:00] MED LIST changes: +CYCLOBENZAPRINE10 MG PO; +TYLENOL325 M1 PO
[2018-03-08 20:13] LABS: BASO # 0.1 10*3/uL (0.0-0.1); BASO % 1.2 % (0.0-1.0); EOS # 0.7 10*3/uL (0.0-0.4); EOS % 8.1 % (1.0-4.0); HEMATOCRIT 44.2 % (37.0-47.0); HEMOGLOBIN 14.4 g/dl (12.0-16.0); LYMPH # 2.2 10*3/uL (1.3-4.4); MEAN CELL VOLUME 75.4 fl (81.0-99.0); MEAN CORPUSCULAR HGB 24.6 pg (27.0-31.0); MEAN CORPUSCULAR HGB CONC 32.6 g/dl (33.0-37.0); MEAN PLATELET VOLUME 10.1 fl (9.6-12.3); MONO # 0.4 10*3/uL (0.1-1.0); MONO % 4.7 % (3.0-9.0); NEUT # 5.1 10*3/uL (2.3-7.9); NEUT % 59.8 % (47.0-73.0); PLATELET COUNT AUTOMATED 234 10*3/uL (130-400); RED BLOOD COUNT 5.86 10*6/uL (4.10-5.10); RED CELL DISTRI WIDTH 14.9 % (0-14.5); WHITE BLOOD COUNT 8.6 10*3/uL (4.8-10.8)
[2018-03-08 20:24] LABS: BILIRUBIN NEGATIVE (NEGATIVE); BLOOD NEGATIVE (NEGATIVE); CLARITY CLEAR (CLEAR); COLOR YELLOW (YELLOW); GLUCOSE NEGATIVE (NEGATIVE); KETONE NEGATIVE (NEGATIVE)
[2018-03-08 20:25] LABS: LEUKO ESTERASE NEGATIVE (NEGATIVE); NITRITE NEGATIVE (NEGATIVE); PH 6.5 (5.0-9.0); UROBILINOGEN 0.2 E.U./dl (0.2-1.0)
[2018-03-08 20:26] LABS: BACTERIA 1+; EPITHELIAL CELLS 30-35
[2018-03-08 20:43] LABS: ALBUMIN 3.9 gm/dl (3.1-4.5); ALKALINE PHOSPHATASE 70 U/L (45-117); BUN 14 mg/dl (7-24); CHLORIDE 107 mmol/L (98-107); CREATININE 0.97 mg/dL (0.55-1.02); POTASSIUM 3.8 mmol/L (3.5-5.1); SGOT/AST 23 IU/L (3-35); SGPT/ALT 38 U/L (12-78); SODIUM 141 mmol/L (136-145); TOTAL PROTEIN 7.8 gm/dL (6.4-8.2)
[2018-03-08 20:55] LABS: TROPONIN I < 0.015 ng/ml (<0.045)
[2018-03-08] MEDS ORDERED: NORVASC5 MG PO (21:23)
[2018-03-08 21:32] VITALS: BP 134/68
[2018-03-23] MEDS ORDERED: LOSARTAN POTASS25 M1 PO (15:00)
[2018-03-24] MEDS ORDERED: Vitamin D PO (18:58)
== END 2018-03-08 21:33 | disposition home or self-care (01) ==
LOC: ED 19:00
PROVIDERS: Emergency Medicine
DX: I12.9 Hypertensive chronic kidney disease with stage 1 through stage 4 chronic kidney disease, or unspecified chronic kidney disease (principal); N18.2 Chronic kidney disease, stage 2 (mild); Z91.14 Patient's other noncompliance with medication regimen; Z79.899 Other long term (current) drug therapy; Z98.890 Other specified postprocedural states; Z90.49 Acquired absence of other specified parts of digestive tract; Z98.51 Tubal ligation status

== ENCOUNTER 2018-04-05 10:58 | Emergency (ER) | payer OTHER ==
[~2018-04-05] VITALS: Wt 97.1 kg
--- NOTE | ~2018-04-05 | EKG ---
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
[~2018-04-05 10:58] MED LIST changes: +LOSARTAN POTASS25 M1 PO; +Vitamin D PO
[2018-04-05 12:16] VITALS: BP 144/97
== END 2018-04-05 14:26 | disposition home or self-care (01) ==
LOC: ED 10:58
DX: M25.522 Pain in left elbow (principal); M79.602 Pain in left arm; Z79.899 Other long term (current) drug therapy

== ENCOUNTER 2018-05-13 21:13 | Inpatient (IN) | payer OTHER ==
[~2018-05-13] VITALS: Ht 160 cm; Wt 105.5 kg
--- NOTE | ~2018-05-13 | EKG ---
[place], [place] ELECTROCARDIOGRAM REPORT NAME: ALINE BAZZI UNIT #: [id number] ROOM: 424 DOCTOR: LEBRON DRAFT REPORT BIRTHDATE: [birth year] [facility] Test Date: 2018-05-14 Test Time: 03:21:49 Pat Name: ALINE BAZZI Department: Room: 424 Gender: F Web Applications Administrator: Isaías Hodgson : 1975 Requested By: CHONG WRIGHT Order Number: [id number] Reading MD: Osmany Bahena MD Measurements Intervals [place] Rate: 65 P: 4 LA: 202 QRS: 54 QRSD: 92 T: 30 QT: 432 QTc: 450 Interpretive Statements Sinus rhythm Borderline prolonged LA interval No change from earlier ECG this date Electronically Signed On 05-14-2018 13:02:55 PST by Osmany Bahena MD CM:EKGRPT:ELECTROCARDIOGRAM REPORT 0321 1302 CHONG FLOWERS DRAFT REPORT CHONG WRIGHT DO
--- NOTE | ~2018-05-13 | EKG ---
[place], [place] ELECTROCARDIOGRAM REPORT NAME: ALINE BAZZI UNIT #: [id number] ROOM: 424 DOCTOR: LEBRON DRAFT REPORT BIRTHDATE: [birth year] [facility] Test Date: 2018-05-13 Test Time: 21:14:02 Pat Name: ALINE BAZZI Department: Room: 424 Gender: F Senior Shipping Clerk: Sahra Alvarez : 1975 Requested By: CHONG WRIGHT Order Number: [id number] Reading MD: Osmany Bahena MD Measurements Intervals [place] Rate: 69 P: 32 ID: 195 QRS: 40 QRSD: 95 T: 24 QT: 392 QTc: 420 Interpretive Statements Sinus rhythm Compared to ECG 04/05/2018 11:35:40 No significant change Electronically Signed On 05-14-2018 12:48:35 PST by Osmany Bahena MD CM:EKGRPT:ELECTROCARDIOGRAM REPORT 13 1248 CHONG FLOWERS DRAFT REPORT CHONG WRIGHT DO
--- NOTE | ~2018-05-13 | EKG ---
[place], [place] ELECTROCARDIOGRAM REPORT NAME: ALINE BAZZI UNIT #: [id number] ROOM: 424 DOCTOR: LEBRON DRAFT REPORT BIRTHDATE: [birth year] [facility] Test Date: 2018-05-14 Test Time: 00:13:03 Pat Name: ALINE BAZZI Department: Room: 424 Gender: F Front Office Medical Assistant: Sahra Alvarez : 1975 Requested By: CHONG WRIGHT Order Number: [id number] Reading MD: Osmany Bahena MD Measurements Intervals [place] Rate: 53 P: -8 CO: 201 QRS: 46 QRSD: 93 T: 28 QT: 440 QTc: 414 Interpretive Statements Sinus rhythm Compared to ECG 04/05/2018 11:35:40 No significant changes Electronically Signed On 05-14-2018 12:57:19 PST by Osmany Bahena MD CM:EKGRPT:ELECTROCARDIOGRAM REPORT 0013 1257 CHONG FLOWERS DRAFT REPORT CHONG WRIGHT DO
[2018-05-13 21:42] LABS: BASO # 0.1 10*3/uL (0.0-0.1); BASO % 0.8 % (0.0-1.0); EOS # 0.5 10*3/uL (0.0-0.4); EOS % 5.5 % (1.0-4.0); HEMATOCRIT 37.4 % (37.0-47.0); HEMOGLOBIN 11.9 g/dl (12.0-16.0); LYMPH # 3.5 10*3/uL (1.3-4.4); LYMPH % 39.4 % (27.0-41.0); MEAN CELL VOLUME 75.7 fl (81.0-99.0); MEAN CORPUSCULAR HGB 24.1 pg (27.0-31.0); MEAN CORPUSCULAR HGB CONC 31.8 g/dl (33.0-37.0); MEAN PLATELET VOLUME 9.5 fl (9.6-12.3); MONO # 0.6 10*3/uL (0.1-1.0); MONO % 7.2 % (3.0-9.0); NEUT # 4.1 10*3/uL (2.3-7.9); NEUT % 46.8 % (47.0-73.0); PLATELET COUNT AUTOMATED 219 10*3/uL (130-400); RED BLOOD COUNT 4.94 10*6/uL (4.10-5.10); RED CELL DISTRI WIDTH 14.3 % (0-14.5); WHITE BLOOD COUNT 8.8 10*3/uL (4.8-10.8)
[2018-05-13 21:52] VITALS: BP 143/76
[2018-05-13 22:03] LABS: ALBUMIN 3.3 gm/dl (3.1-4.5); ALKALINE PHOSPHATASE 66 U/L (45-117); BUN 19 mg/dl (7-24); CHLORIDE 106 mmol/L (98-107); CREATININE 1.25 mg/dL (0.55-1.02); POTASSIUM 3.6 mmol/L (3.5-5.1); SGOT/AST 26 IU/L (3-35); SGPT/ALT 41 U/L (12-78); SODIUM 140 mmol/L (136-145); TOTAL PROTEIN 6.9 gm/dL (6.4-8.2)
[2018-05-13 22:05] LABS: TROPONIN I < 0.015 ng/ml (<0.045)
[2018-05-13 22:13] LABS: ACT PARTIAL THROMBO TIME 21.7 SECONDS (20.8-31.5); INTERNATIONAL NORM RATIO 0.9 (2.0-3.5)
[2018-05-13 22:18] VITALS: BP 135/75
[2018-05-13 22:50] VITALS: BP 137/82
[2018-05-13 23:18] VITALS: BP 135/78
[2018-05-13 23:30] VITALS: BP 142/79
[2018-05-14 03:52] LABS: BASO # 0.1 10*3/uL (0.0-0.1); BASO % 1.2 % (0.0-1.0); EOS # 0.6 10*3/uL (0.0-0.4); EOS % 7.2 % (1.0-4.0); HEMATOCRIT 36.3 % (37.0-47.0); HEMOGLOBIN 11.4 g/dl (12.0-16.0); LYMPH # 3.7 10*3/uL (1.3-4.4); MEAN CELL VOLUME 76.3 fl (81.0-99.0); MEAN CORPUSCULAR HGB 23.9 pg (27.0-31.0); MEAN CORPUSCULAR HGB CONC 31.4 g/dl (33.0-37.0); MEAN PLATELET VOLUME 9.7 fl (9.6-12.3); MONO # 0.6 10*3/uL (0.1-1.0); MONO % 7.4 % (3.0-9.0); NEUT # 2.9 10*3/uL (2.3-7.9); NEUT % 36.9 % (47.0-73.0); PLATELET COUNT AUTOMATED 194 10*3/uL (130-400); RED BLOOD COUNT 4.76 10*6/uL (4.10-5.10); RED CELL DISTRI WIDTH 14.3 % (0-14.5); WHITE BLOOD COUNT 7.8 10*3/uL (4.8-10.8)
[2018-05-14 04:06] LABS: ALBUMIN 3.1 gm/dl (3.1-4.5); ALKALINE PHOSPHATASE 61 U/L (45-117); BUN 18 mg/dl (7-24); CHLORIDE 109 mmol/L (98-107); PHOSPHOROUS 3.5 mg/dL (2.5-4.9); POTASSIUM 3.8 mmol/L (3.5-5.1); SGOT/AST 18 IU/L (3-35); SGPT/ALT 35 U/L (12-78); SODIUM 141 mmol/L (136-145); TOTAL PROTEIN 6.1 gm/dL (6.4-8.2)
[2018-05-14 08:00] VITALS: BP 131/88
== END 2018-05-14 12:30 | disposition home or self-care (01) | DRG 391 ==
LOC: ED 21:13 → EDHOLD 22:34 → 4E 22:44
PROVIDERS: Internal Medicine; Student in an Organized Health Care Education/Training Program
DX: K21.9 Gastro-esophageal reflux disease without esophagitis (principal); N17.0 Acute kidney failure with tubular necrosis; I24.9 Acute ischemic heart disease, unspecified; Z68.41 Body mass index [BMI] 40.0-44.9, adult; D50.9 Iron deficiency anemia, unspecified; R73.9 Hyperglycemia, unspecified; E66.01 Morbid (severe) obesity due to excess calories; I12.9 Hypertensive chronic kidney disease with stage 1 through stage 4 chronic kidney disease, or unspecified chronic kidney disease; N18.2 Chronic kidney disease, stage 2 (mild); R07.89 Other chest pain; F41.9 Anxiety disorder, unspecified; I25.2 Old myocardial infarction; Z90.49 Acquired absence of other specified parts of digestive tract; Z98.51 Tubal ligation status; Z82.49 Family history of ischemic heart disease and other diseases of the circulatory system; Z83.3 Family history of diabetes mellitus; Z80.9 Family history of malignant neoplasm, unspecified; Z79.82 Long term (current) use of aspirin; Z79.899 Other long term (current) drug therapy

== ENCOUNTER 2019-05-14 19:34 | Emergency (ER) | payer OTHER ==
[~2019-05-14] VITALS: Ht 157.4 cm; Wt 103.4 kg
[~2019-05-14 19:34] MED LIST changes: +METOPROLOL SUCC25 M2 PO; +PANTOPRAZOLE SO40 MG PO; +TRICOR48 MG PO; +VITAMIN D32000 UNI1 PO
[2019-05-14 21:15] VITALS: BP 142/70
[2019-05-14] MEDS ORDERED: PREDNISONE20 M1 PO (22:36)
[2019-05-14] MEDS ORDERED: ZITHROMAX250 MG PO (22:36)
== END 2019-05-15 00:23 | disposition home or self-care (01) ==
LOC: ED 19:34
DX: J40 Bronchitis, not specified as acute or chronic (principal); H57.89 Other specified disorders of eye and adnexa; I10 Essential (primary) hypertension; K21.9 Gastro-esophageal reflux disease without esophagitis; Z79.2 Long term (current) use of antibiotics; Z79.899 Other long term (current) drug therapy

== ENCOUNTER 2020-02-13 11:25 | Emergency (ER) | payer OTHER ==
[~2020-02-13 11:25] MED LIST changes: +PREDNISONE20 M1 PO
[2020-02-13 11:32] VITALS: BP 162/94
[2020-02-13 12:23] LABS: BASO # 0.1 10*3/uL (0.0-0.1); BASO % 1.1 % (0.0-1.0); EOS # 0.7 10*3/uL (0.0-0.4); EOS % 9.4 % (1.0-4.0); HEMATOCRIT 44.3 % (37.0-47.0); LYMPH # 2.8 10*3/uL (1.3-4.4); MEAN CELL VOLUME 77.4 fl (81.0-99.0); MEAN CORPUSCULAR HGB 24.5 pg (27.0-31.0); MEAN CORPUSCULAR HGB CONC 31.6 g/dl (33.0-37.0); MEAN PLATELET VOLUME 9.7 fl (9.6-12.3); MONO # 0.4 10*3/uL (0.1-1.0); NEUT # 3.1 10*3/uL (2.3-7.9); NEUT % 43.9 % (47.0-73.0); PLATELET COUNT AUTOMATED 202 10*3/uL (130-400); RED BLOOD COUNT 5.72 10*6/uL (4.10-5.10); RED CELL DISTRI WIDTH 14.1 % (0-14.5); WHITE BLOOD COUNT 7.2 10*3/uL (4.8-10.8)
[2020-02-13 12:37] LABS: ALBUMIN 3.7 gm/dl (3.1-4.5); ALKALINE PHOSPHATASE 69 U/L (45-117); BUN 11 mg/dl (7-24); CHLORIDE 108 mmol/L (98-107); CREATININE 1.11 mg/dL (0.55-1.02); POTASSIUM 3.8 mmol/L (3.5-5.1); SGOT/AST 66 IU/L (3-35); SGPT/ALT 124 U/L (12-78); SODIUM 140 mmol/L (136-145); TOTAL PROTEIN 7.5 gm/dL (6.4-8.2)
[2020-02-13 12:39] LABS: TROPONIN I < 0.015 ng/ml (<0.045)
[2020-02-13] MEDS ORDERED: NAPROSYN500 MG PO (13:55)
== END 2020-02-13 14:03 | disposition home or self-care (01) ==
LOC: ED 11:25
PROVIDERS: Nurse Practitioner Family
DX: M25.512 Pain in left shoulder (principal); Z79.82 Long term (current) use of aspirin; Z79.899 Other long term (current) drug therapy

== ENCOUNTER 2020-03-03 16:44 | Observation (INO) | payer OTHER ==
[2020-03-03] VITALS (7 sets, daily range): BP systolic 138–186; BP diastolic 70–86
[~2020-03-03] VITALS: Ht 157.4 cm; Wt 111.8 kg
[2020-03-03 17:00] LABS: BASO # 0.1 10*3/uL (0.0-0.1); BASO % 0.8 % (0.0-1.0); EOS # 0.4 10*3/uL (0.0-0.4); HEMATOCRIT 40.8 % (37.0-47.0); LYMPH # 2.4 10*3/uL (1.3-4.4); LYMPH % 33.2 % (27.0-41.0); MEAN CELL VOLUME 78.6 fl (81.0-99.0); MEAN CORPUSCULAR HGB 24.7 pg (27.0-31.0); MEAN CORPUSCULAR HGB CONC 31.4 g/dl (33.0-37.0); MEAN PLATELET VOLUME 9.4 fl (9.6-12.3); MONO # 0.6 10*3/uL (0.1-1.0); MONO % 7.9 % (3.0-9.0); NEUT # 3.8 10*3/uL (2.3-7.9); NEUT % 52.8 % (47.0-73.0); PLATELET COUNT AUTOMATED 195 10*3/uL (130-400); RED BLOOD COUNT 5.19 10*6/uL (4.10-5.10); RED CELL DISTRI WIDTH 14.3 % (0-14.5); WHITE BLOOD COUNT 7.2 10*3/uL (4.8-10.8)
[2020-03-03 17:20] LABS: ALBUMIN 3.4 gm/dl (3.1-4.5); ALKALINE PHOSPHATASE 65 U/L (45-117); BUN 13 mg/dl (7-24); CHLORIDE 106 mmol/L (98-107); CREATININE 0.94 mg/dL (0.55-1.02); POTASSIUM 3.8 mmol/L (3.5-5.1); SGOT/AST 101 IU/L (3-35); SGPT/ALT 121 U/L (12-78); SODIUM 139 mmol/L (136-145); TOTAL PROTEIN 6.9 gm/dL (6.4-8.2)
[2020-03-03 17:21] LABS: ACT PARTIAL THROMBO TIME 23.5 SECONDS (20.0-32.1)
[2020-03-03 17:26] LABS: TROPONIN I < 0.015 ng/ml (<0.045)
[2020-03-04] VITALS (7 sets, daily range): BP systolic 138–146; BP diastolic 60–92
[2020-03-04 05:53] LABS: ALBUMIN 3.4 gm/dl (3.1-4.5); ALKALINE PHOSPHATASE 65 U/L (45-117); BUN 11 mg/dl (7-24); CHLORIDE 105 mmol/L (98-107); CHOLESTEROL 183 mg/dL (<200); CREATININE 0.86 mg/dL (0.55-1.02); FREE T4 1.08 ng/dl (0.76-1.46); HDL CHOLESTEROL 26 mg/dl (40-60); LDL CHOLESTEROL 118 mg/dL (9-159); POTASSIUM 3.7 mmol/L (3.5-5.1); SGOT/AST 121 IU/L (3-35); SGPT/ALT 125 U/L (12-78); SODIUM 139 mmol/L (136-145); TOTAL PROTEIN 6.7 gm/dL (6.4-8.2); TRIGLYCERIDES 196 mg/dl (<150); VLDL CHOLESTEROL 39 mg/dL (6-40)
[2020-03-04 06:05] LABS: BASO # 0.1 10*3/uL (0.0-0.1); BASO % 1.1 % (0.0-1.0); EOS # 0.4 10*3/uL (0.0-0.4); EOS % 5.7 % (1.0-4.0); HEMATOCRIT 41.5 % (37.0-47.0); LYMPH # 2.5 10*3/uL (1.3-4.4); LYMPH % 37.5 % (27.0-41.0); MEAN CELL VOLUME 79.3 fl (81.0-99.0); MEAN CORPUSCULAR HGB 24.7 pg (27.0-31.0); MEAN CORPUSCULAR HGB CONC 31.1 g/dl (33.0-37.0); MEAN PLATELET VOLUME 9.9 fl (9.6-12.3); MONO # 0.5 10*3/uL (0.1-1.0); MONO % 7.3 % (3.0-9.0); NEUT # 3.2 10*3/uL (2.3-7.9); NEUT % 48.1 % (47.0-73.0); PLATELET COUNT AUTOMATED 200 10*3/uL (130-400); RED BLOOD COUNT 5.23 10*6/uL (4.10-5.10); RED CELL DISTRI WIDTH 14.6 % (0-14.5); WHITE BLOOD COUNT 6.6 10*3/uL (4.8-10.8)
[2020-03-04 07:46] LABS: VITAMIN D, 25-HYDROXY 26.7 ng/mL (30-100)
[2020-03-05] VITALS: BP 124/67
[2020-03-05] MEDS ORDERED: METOPROLOL SUCC25 M2 PO (11:34)
[2020-03-05] MEDS ORDERED: ASPIRIN CHEWABL81 M1 PO (11:34)
[2020-03-05] MEDS ORDERED: LOSARTAN POTASS50 M1 PO (11:34)
[2020-03-05 12:00] VITALS: BP 120/70
== END 2020-03-05 12:15 | disposition home or self-care (01) ==
LOC: ED 16:44 → EDHOLD 19:17 → 4E 03-04 14:39
PROVIDERS: Emergency Medicine; Internal Medicine; ADMIT Internal Medicine; ATTEND Internal Medicine
DX: R07.89 Other chest pain (principal); R06.82 Tachypnea, not elsewhere classified; R74.01 Elevation of levels of liver transaminase levels; E55.9 Vitamin D deficiency, unspecified; H91.90 Unspecified hearing loss, unspecified ear; I10 Essential (primary) hypertension; E44.0 Moderate protein-calorie malnutrition; K21.9 Gastro-esophageal reflux disease without esophagitis; R73.9 Hyperglycemia, unspecified

== ENCOUNTER 2020-04-04 21:41 | Emergency (ER) | payer OTHER ==
[~2020-04-04] VITALS: Ht 157.5 cm; Wt 118.8 kg
[~2020-04-04 21:41] MED LIST changes: +ASPIRIN CHEWABL81 M1 PO; +LOSARTAN POTASS50 M1 PO
[2020-04-04 22:22] LABS: ALBUMIN 3.4 gm/dl (3.1-4.5); ALKALINE PHOSPHATASE 65 U/L (45-117); BUN 9 mg/dl (7-24); CHLORIDE 106 mmol/L (98-107); CREATININE 1.01 mg/dL (0.55-1.02); POTASSIUM 3.3 mmol/L (3.5-5.1); SGOT/AST 53 IU/L (3-35); SGPT/ALT 87 U/L (12-78); SODIUM 139 mmol/L (136-145); TOTAL PROTEIN 6.8 gm/dL (6.4-8.2)
[2020-04-04 22:23] LABS: EOS # 0.1 10*3/uL (0.0-0.4); EOS % 1.8 % (1.0-4.0); HEMATOCRIT 38.9 % (37.0-47.0); LYMPH # 1.2 10*3/uL (1.3-4.4); LYMPH % 30.4 % (27.0-41.0); MEAN CELL VOLUME 79.1 fl (81.0-99.0); MEAN CORPUSCULAR HGB 25.6 pg (27.0-31.0); MEAN CORPUSCULAR HGB CONC 32.4 g/dl (33.0-37.0); MEAN PLATELET VOLUME 9.7 fl (9.6-12.3); MONO # 0.3 10*3/uL (0.1-1.0); MONO % 7.9 % (3.0-9.0); NEUT # 2.3 10*3/uL (2.3-7.9); NEUT % 58.1 % (47.0-73.0); PLATELET COUNT AUTOMATED 153 10*3/uL (130-400); RED BLOOD COUNT 4.92 10*6/uL (4.10-5.10); RED CELL DISTRI WIDTH 14.9 % (0-14.5); WHITE BLOOD COUNT 3.9 10*3/uL (4.8-10.8)
[2020-04-04 23:17] VITALS: BP 128/58
== END 2020-04-04 23:18 | disposition home or self-care (01) ==
LOC: ED 21:41
PROVIDERS: Internal Medicine
DX: E87.6 Hypokalemia (principal); R07.89 Other chest pain; M79.602 Pain in left arm; K21.9 Gastro-esophageal reflux disease without esophagitis; I10 Essential (primary) hypertension; I25.10 Atherosclerotic heart disease of native coronary artery without angina pectoris; F41.9 Anxiety disorder, unspecified; Z79.899 Other long term (current) drug therapy; Z79.82 Long term (current) use of aspirin; Z98.890 Other specified postprocedural states; Z98.61 Coronary angioplasty status

== ENCOUNTER 2020-04-15 16:38 | Emergency (ER) | payer OTHER ==
[~2020-04-15] VITALS: Ht 157.4 cm
[2020-04-15 17:58] LABS: HEMATOCRIT 39.9 % (37.0-47.0); MEAN CELL VOLUME 79.8 fl (81.0-99.0); MEAN CORPUSCULAR HGB CONC 31.3 g/dl (33.0-37.0); MEAN PLATELET VOLUME 10.1 fl (9.6-12.3); PLATELET COUNT AUTOMATED 188 10*3/uL (130-400); WHITE BLOOD COUNT 7.6 10*3/uL (4.8-10.8)
[2020-04-15 18:07] LABS: INTERNATIONAL NORM RATIO 0.9 (2.0-3.5)
[2020-04-15 18:13] LABS: ALBUMIN 3.2 gm/dl (3.1-4.5); ALKALINE PHOSPHATASE 61 U/L (45-117); BUN 13 mg/dl (7-24); CHLORIDE 108 mmol/L (98-107); CREATININE 1.11 mg/dL (0.55-1.02); POTASSIUM 3.8 mmol/L (3.5-5.1); SGOT/AST 72 IU/L (3-35); SGPT/ALT 112 U/L (12-78); SODIUM 138 mmol/L (136-145); TOTAL PROTEIN 6.3 gm/dL (6.4-8.2)
[2020-04-15 18:16] LABS: TROPONIN I < 0.015 ng/ml (<0.045)
[2020-04-15 18:26] LABS: PLATELET SUFFICIENCY NORMAL (NORMAL); TOTAL CELLS COUNTED 100 #CELLS
[2020-04-15 18:27] LABS: ACT PARTIAL THROMBO TIME < 20.0 SECONDS (20.0-32.1)
[2020-04-15] MEDS ORDERED: ROBAXIN-750750 MG PO (19:31)
[2020-04-15 19:52] VITALS: BP 151/91
== END 2020-04-15 19:45 | disposition home or self-care (01) ==
LOC: ED 16:38
PROVIDERS: Nurse Practitioner Family
DX: M54.12 Radiculopathy, cervical region (principal); M25.512 Pain in left shoulder; M79.602 Pain in left arm

== ENCOUNTER 2020-04-21 08:51 | Observation (INO) | payer OTHER ==
[~2020-04-21] VITALS: Ht 157.4 cm; Wt 113.5 kg
[~2020-04-21 08:51] MED LIST changes: +ROBAXIN-750750 MG PO
[2020-04-21 08:56] VITALS: BP 165/78
[2020-04-21 09:12] LABS: BASO # 0.1 10*3/uL (0.0-0.1); BASO % 1.2 % (0.0-1.0); EOS # 0.4 10*3/uL (0.0-0.4); EOS % 5.9 % (1.0-4.0); HEMATOCRIT 38.1 % (37.0-47.0); LYMPH # 2.5 10*3/uL (1.3-4.4); LYMPH % 36.3 % (27.0-41.0); MEAN CELL VOLUME 79.9 fl (81.0-99.0); MEAN CORPUSCULAR HGB 25.2 pg (27.0-31.0); MEAN CORPUSCULAR HGB CONC 31.5 g/dl (33.0-37.0); MEAN PLATELET VOLUME 9.3 fl (9.6-12.3); MONO # 0.5 10*3/uL (0.1-1.0); MONO % 7.3 % (3.0-9.0); NEUT # 3.3 10*3/uL (2.3-7.9); NEUT % 48.9 % (47.0-73.0); PLATELET COUNT AUTOMATED 193 10*3/uL (130-400); RED BLOOD COUNT 4.77 10*6/uL (4.10-5.10); RED CELL DISTRI WIDTH 14.8 % (0-14.5); WHITE BLOOD COUNT 6.8 10*3/uL (4.8-10.8)
[2020-04-21 09:30] LABS: ALBUMIN 3.3 gm/dl (3.1-4.5); ALKALINE PHOSPHATASE 61 U/L (45-117); BUN 13 mg/dl (7-24); CHLORIDE 106 mmol/L (98-107); CREATININE 0.87 mg/dL (0.55-1.02); POTASSIUM 3.5 mmol/L (3.5-5.1); SGOT/AST 46 IU/L (3-35); SGPT/ALT 69 U/L (12-78); SODIUM 138 mmol/L (136-145); TOTAL PROTEIN 6.5 gm/dL (6.4-8.2)
[2020-04-21 09:34] LABS: TROPONIN I < 0.015 ng/ml (<0.045)
[2020-04-21 13:04] VITALS: BP 143/66
[2020-04-21 13:15] VITALS: BP 171/82
[2020-04-21 14:01] LABS: ACT PARTIAL THROMBO TIME 23.1 SECONDS (20.0-32.1)
--- NOTE | 2020-04-21 15:11 | NUR ---
NORCO GIVEN FOR PAIN IN CHEST INTO BACK, NECK, LEFT ARM. DENIES PAIN IN STOMACH
[2020-04-21 16:00] VITALS: BP 158/65
--- NOTE | 2020-04-21 17:53 | NUR ---
PER PT NO PAIN EXCEPT IN HER BACK SINCE AWAKENING S/P PO NORCO..TALKING WITH FAMILY
--- NOTE | 2020-04-21 19:20 | NUR ---
SLEEPING ON SIDE - RESP EASY AND NONLABOERED
[2020-04-21 20:00] VITALS: BP 156/85
--- NOTE | 2020-04-21 20:27 | NUR ---
NORCO FOR C/O PAIN AT BASE OF LEFT SHOULDER BLADE ONLY. DENIES CHEST PAIN OR RADIATION. NO SOB/NAUSEA/DIAPHORESIS
[2020-04-22] VITALS: BP 164/97
--- NOTE | 2020-04-22 02:05 | NUR ---
PRN NORCO GIVEN AT THIS TIME FOR C/O LEFT ARM PAIN RADIATING TO BACK. PATIENT APPEARS TO BE IN A LOT OF DISTRESS. WILL MONITOR EFFECT. CALL LIGHT IS WITHIN REACH.
--- NOTE | 2020-04-22 02:43 | NUR ---
CHART CHECK COMPLETE.
--- NOTE | 2020-04-22 06:16 | NUR ---
PRN NORCO GIVEN FOR CHEST/BACK/LEFT ARM PAIN RATING A 6/10. CALL LIGHT IS WITHIN REACH. WILL MONITOR EFFECT.
[2020-04-22 06:35] LABS: BASO # 0.1 10*3/uL (0.0-0.1); BASO % 0.9 % (0.0-1.0); EOS # 0.4 10*3/uL (0.0-0.4); EOS % 5.2 % (1.0-4.0); HEMATOCRIT 41.4 % (37.0-47.0); LYMPH # 2.9 10*3/uL (1.3-4.4); LYMPH % 37.3 % (27.0-41.0); MEAN CELL VOLUME 80.2 fl (81.0-99.0); MEAN CORPUSCULAR HGB CONC 31.2 g/dl (33.0-37.0); MEAN PLATELET VOLUME 9.6 fl (9.6-12.3); MONO # 0.4 10*3/uL (0.1-1.0); MONO % 5.6 % (3.0-9.0); NEUT # 3.9 10*3/uL (2.3-7.9); NEUT % 50.6 % (47.0-73.0); PLATELET COUNT AUTOMATED 224 10*3/uL (130-400); RED BLOOD COUNT 5.16 10*6/uL (4.10-5.10); RED CELL DISTRI WIDTH 14.7 % (0-14.5); WHITE BLOOD COUNT 7.6 10*3/uL (4.8-10.8)
[2020-04-22 06:46] LABS: ACT PARTIAL THROMBO TIME 23.2 SECONDS (20.0-32.1)
[2020-04-22 06:53] LABS: ALBUMIN 3.5 gm/dl (3.1-4.5); ALKALINE PHOSPHATASE 67 U/L (45-117); BUN 14 mg/dl (7-24); CHLORIDE 104 mmol/L (98-107); CREATININE 0.87 mg/dL (0.55-1.02); SGOT/AST 64 IU/L (3-35); SGPT/ALT 84 U/L (12-78); SODIUM 138 mmol/L (136-145)
[2020-04-22 07:34] LABS: VITAMIN D, 25-HYDROXY 19.3 ng/mL (30-100)
[2020-04-22 08:00] VITALS: BP 151/84
--- NOTE | 2020-04-22 08:57 | NUR ---
PT RESTING IN BED. NO DISTRESS NOTED. WILL MONITOR CALL LIGHT WITHIN REACH
[2020-04-22] MEDS ORDERED: HYDROCODONE-AC1 EAC1 PO (10:07)
[2020-04-22 12:00] VITALS: BP 152/77
--- NOTE | 2020-04-22 14:10 | NUR ---
Discharge instructions reviewed with patient/family. Patient receptive and verbalizes understanding. Follow-up care arranged. Written instructions given to patient/family. MICAH VELA
== END 2020-04-22 14:10 | disposition home or self-care (01) ==
LOC: ED 08:51 → EDHOLD 12:07 → 5E 12:27
PROVIDERS: Emergency Medicine; Hospitalist; ADMIT Student in an Organized Health Care Education/Training Program; ATTEND Student in an Organized Health Care Education/Training Program
DX: R07.89 Other chest pain (principal); R73.9 Hyperglycemia, unspecified; R74.01 Elevation of levels of liver transaminase levels; H91.90 Unspecified hearing loss, unspecified ear; K21.9 Gastro-esophageal reflux disease without esophagitis; E78.5 Hyperlipidemia, unspecified; I10 Essential (primary) hypertension; E55.9 Vitamin D deficiency, unspecified; Z23 Encounter for immunization

== ENCOUNTER 2020-05-07 23:18 | Emergency (ER) | payer OTHER ==
[~2020-05-07] VITALS: Wt 113.4 kg
[~2020-05-07 23:18] MED LIST changes: +HYDROCODONE-AC1 EAC1 PO
[2020-05-08] LABS: BASO # 0.1 10*3/uL (0.0-0.1); BASO % 1.2 % (0.0-1.0); EOS # 0.5 10*3/uL (0.0-0.4); HEMATOCRIT 38.7 % (37.0-47.0); LYMPH % 40.3 % (27.0-41.0); MEAN CELL VOLUME 80.3 fl (81.0-99.0); MEAN CORPUSCULAR HGB 24.7 pg (27.0-31.0); MEAN CORPUSCULAR HGB CONC 30.7 g/dl (33.0-37.0); MEAN PLATELET VOLUME 10.2 fl (9.6-12.3); MONO # 0.6 10*3/uL (0.1-1.0); MONO % 7.8 % (3.0-9.0); NEUT # 3.2 10*3/uL (2.3-7.9); NEUT % 43.6 % (47.0-73.0); PLATELET COUNT AUTOMATED 149 10*3/uL (130-400); RED BLOOD COUNT 4.82 10*6/uL (4.10-5.10); RED CELL DISTRI WIDTH 14.5 % (0-14.5); WHITE BLOOD COUNT 7.4 10*3/uL (4.8-10.8)
[2020-05-08 00:07] LABS: INTERNATIONAL NORM RATIO 0.9 (2.0-3.5)
[2020-05-08 00:19] LABS: ALBUMIN 3.1 gm/dl (3.1-4.5); ALKALINE PHOSPHATASE 59 U/L (45-117); BUN 15 mg/dl (7-24); CHLORIDE 107 mmol/L (98-107); CREATININE 0.82 mg/dL (0.55-1.02); POTASSIUM 3.7 mmol/L (3.5-5.1); SGOT/AST 50 IU/L (3-35); SGPT/ALT 66 U/L (12-78); SODIUM 139 mmol/L (136-145); TOTAL PROTEIN 6.5 gm/dL (6.4-8.2)
[2020-05-08 00:26] LABS: TROPONIN I < 0.015 ng/ml (<0.045)
[2020-05-08 02:40] VITALS: BP 142/84
== END 2020-05-08 03:20 | disposition home or self-care (01) ==
LOC: ED 23:18
PROVIDERS: Emergency Medicine
DX: R07.9 Chest pain, unspecified (principal); K21.9 Gastro-esophageal reflux disease without esophagitis; I10 Essential (primary) hypertension; E78.5 Hyperlipidemia, unspecified; E66.01 Morbid (severe) obesity due to excess calories

== ENCOUNTER 2020-05-13 15:25 | Observation (INO) | payer OTHER ==
[~2020-05-13] VITALS: Ht 157.4 cm; Wt 118.9 kg
[2020-05-13] VITALS (7 sets, daily range): BP systolic 126–165; BP diastolic 71–87
[2020-05-13 15:47] LABS: BASO # 0.1 10*3/uL (0.0-0.1); BASO % 0.7 % (0.0-1.0); EOS # 0.2 10*3/uL (0.0-0.4); EOS % 1.7 % (1.0-4.0); HEMATOCRIT 40.2 % (37.0-47.0); LYMPH # 3.6 10*3/uL (1.3-4.4); MEAN CELL VOLUME 79.4 fl (81.0-99.0); MEAN CORPUSCULAR HGB 25.5 pg (27.0-31.0); MEAN CORPUSCULAR HGB CONC 32.1 g/dl (33.0-37.0); MEAN PLATELET VOLUME 9.7 fl (9.6-12.3); MONO # 0.7 10*3/uL (0.1-1.0); MONO % 7.6 % (3.0-9.0); NEUT # 5.1 10*3/uL (2.3-7.9); NEUT % 52.4 % (47.0-73.0); PLATELET COUNT AUTOMATED 266 10*3/uL (130-400); RED BLOOD COUNT 5.06 10*6/uL (4.10-5.10); RED CELL DISTRI WIDTH 14.4 % (0-14.5); WHITE BLOOD COUNT 9.7 10*3/uL (4.8-10.8)
[2020-05-13 16:00] LABS: ACT PARTIAL THROMBO TIME 21.9 SECONDS (20.0-32.1)
[2020-05-13 16:04] LABS: ALBUMIN 3.5 gm/dl (3.1-4.5); ALKALINE PHOSPHATASE 64 U/L (45-117); BUN 20 mg/dl (7-24); CHLORIDE 109 mmol/L (98-107); CREATININE 0.99 mg/dL (0.55-1.02); POTASSIUM 3.7 mmol/L (3.5-5.1); SGOT/AST 110 IU/L (3-35); SGPT/ALT 139 U/L (12-78); SODIUM 139 mmol/L (136-145); TOTAL PROTEIN 6.8 gm/dL (6.4-8.2)
[2020-05-13 16:05] LABS: TROPONIN I < 0.015 ng/ml (<0.045)
--- NOTE | 2020-05-13 19:29 | NUR ---
PT RESTING IN BED WATCHING TV. DENIES ANY NEEDS AT THIS TIME.
--- NOTE | 2020-05-14 01:22 | NUR ---
PT UP TO USE BATHROOM. A+OX3. AMBULATING TO BATHROOM NORMALLY. DENIES ANY NEEDS AT THIS TIME.
[2020-05-14 01:23] VITALS: BP 158/74
--- NOTE | 2020-05-14 03:05 | NUR ---
REPORT GIVEN TO THIS RN
[2020-05-14 05:42] LABS: ALBUMIN 3.5 gm/dl (3.1-4.5); ALKALINE PHOSPHATASE 56 U/L (45-117); BUN 17 mg/dl (7-24); CHLORIDE 107 mmol/L (98-107); CREATININE 0.94 mg/dL (0.55-1.02); POTASSIUM 3.8 mmol/L (3.5-5.1); SGPT/ALT 150 U/L (12-78); SODIUM 139 mmol/L (136-145); TOTAL PROTEIN 6.9 gm/dL (6.4-8.2)
[2020-05-14 05:44] LABS: SGOT/AST 109 IU/L (3-35)
--- NOTE | 2020-05-14 06:15 | NUR ---
PATIENT IN BED RESTING EYES, NO DISTRESS NOTED. RESP EASY AND NONLABORED. RN WILL CONT TO MONITOR. CALL LIGHT WITHIN REACH
[2020-05-14 06:45] LABS: BASO # 0.1 10*3/uL (0.0-0.1); BASO % 1.3 % (0.0-1.0); EOS # 0.2 10*3/uL (0.0-0.4); EOS % 2.7 % (1.0-4.0); HEMATOCRIT 41.4 % (37.0-47.0); LYMPH # 3.2 10*3/uL (1.3-4.4); LYMPH % 42.5 % (27.0-41.0); MEAN CELL VOLUME 80.2 fl (81.0-99.0); MEAN CORPUSCULAR HGB 24.6 pg (27.0-31.0); MEAN CORPUSCULAR HGB CONC 30.7 g/dl (33.0-37.0); MEAN PLATELET VOLUME 10.4 fl (9.6-12.3); MONO # 0.5 10*3/uL (0.1-1.0); MONO % 6.2 % (3.0-9.0); NEUT # 3.5 10*3/uL (2.3-7.9); PLATELET COUNT AUTOMATED 258 10*3/uL (130-400); RED BLOOD COUNT 5.16 10*6/uL (4.10-5.10); RED CELL DISTRI WIDTH 14.2 % (0-14.5); WHITE BLOOD COUNT 7.5 10*3/uL (4.8-10.8)
--- NOTE | 2020-05-14 07:35 | NUR ---
RESTING IN NO DISTRESS. CALL LIGHT IN REACH.
--- NOTE | 2020-05-14 09:54 | NUR ---
A 45, admitted to 5E, under the services of YISSEL Dykes DO with a diagnosis of CHEST PAIN. Chief complaint is CHEST PAIN RADIATING INTO LEFT HAND AND THUMB. Patient arrived via ambulance from ER. Monitor applied. Initial assessment completed. Vital signs taken and recorded. YISSEL DYKES DO notified of admission to the unit. Orders received. See assessment for past medical history, medications and allergies. Patient and/or family oriented to unit. [facility] visitation policy reviewed. Clothing/patient valuable form completed. MENA MORENO A
--- NOTE | 2020-05-14 10:33 | NUR ---
MORPHIN GIVEN FOR CHEST PAIN RADIATING TO RT ARM AND HAND. PT SLAPPING ARM FOR RELIEF. STATES IT IS TINGLING AND RT INDEX FINGER IS NUMB. SBP 1722. WILL MONITOR FOR EFFECTIVENESS. CALL LIGHT IN REACH. PT EXPECTED TO LEAVE FLOOR SOON FOR STRESS TEST.
--- NOTE | 2020-05-14 10:47 | NUR ---
OFF FLOOR FOR STRESS TEST.
--- NOTE | 2020-05-14 11:35 | NUR ---
INFORMED CONSENT SIGNED FOR LEXISCN STRESS TEST WITH DR. STANLEY. PT IS DEAF AND ABLE TO READ LIPS WELL WRITTEN EXPLAINATION GIVEN. RESTING EKG NSR, HR 63, BP 122/64. PULSE OX 96% AND LUNGS CLEAR. COMPLETED ONE MINUTE OF LEXISCAN PROTOCOL RECEIVING LEXISCAN 0.4MG OVER 10 SECONDS. NO ARRHYTHMIAS OR ST CHANGES NOTED. PT C/O SOB. LAST RECOVERY HR 72, BP 120/68. WAITING NUCLEAR SCANNING IN STABLE CONDITION.
[2020-05-14 12:00] VITALS: BP 135/72
--- NOTE | 2020-05-14 12:28 | NUR ---
BACK TO ROOM FROM STRESS TEST.
--- NOTE | 2020-05-14 13:27 | NUR ---
Rake Operator in to see patient in her Room. Communicated effectively using Pen and Tablet due to Pt. Being deaf. Pt. can read Lips. Patient Lives at home with Family There are 10 steps in the home. Physician: Isidro Lyles Pharmacy: [facility] [place] [facility] services: N/A Patient's level of ADLs: Independent Patient has working utilities: Yes DME: None Follow-up physician's appointment after d/c: Per Hospitalist Nurse Director Does patient want to access PORTAL?: Declines Discharge plan discussed with Pt. Pt. will return home with No needs. Pt. is Independent in her Care and Voiced No Needs or concerns at discharge. PAWAN ALVA LPN
--- NOTE | 2020-05-14 14:36 | NUR ---
Discharge instructions reviewed with patient/family. Patient receptive and verbalizes understanding. Follow-up care arranged. Written instructions given to patient/family. MENA MORENO
== END 2020-05-14 14:36 | disposition home or self-care (01) ==
LOC: ED 15:25 → EDHOLD 16:33 → 5E 05-14 08:39
PROVIDERS: Emergency Medicine; Student in an Organized Health Care Education/Training Program; ADMIT Emergency Medicine; ATTEND Emergency Medicine
DX: R07.2 Precordial pain (principal); I10 Essential (primary) hypertension; E78.5 Hyperlipidemia, unspecified; K21.9 Gastro-esophageal reflux disease without esophagitis; H91.90 Unspecified hearing loss, unspecified ear; E44.0 Moderate protein-calorie malnutrition; E87.8 Other disorders of electrolyte and fluid balance, not elsewhere classified; E83.41 Hypermagnesemia; R73.9 Hyperglycemia, unspecified; R74.01 Elevation of levels of liver transaminase levels; E55.9 Vitamin D deficiency, unspecified; E66.01 Morbid (severe) obesity due to excess calories; Z91.14 Patient's other noncompliance with medication regimen; Z98.890 Other specified postprocedural states; Z20.828 Contact with and (suspected) exposure to other viral communicable diseases

== ENCOUNTER 2020-05-26 09:42 | Emergency (ER) | payer OTHER ==
[~2020-05-26] VITALS: Wt 118.8 kg
[2020-05-26 09:55] VITALS: BP 156/85
[2020-05-26] MEDS ORDERED: NAPROXEN250 MG PO (10:21)
[2020-05-26] MEDS ORDERED: TYLENOL325 M1 PO (10:21)
[2020-05-26] MEDS ORDERED: CYCLOBENZAPRINE5 M3 PO (10:21)
== END 2020-05-26 10:26 | disposition home or self-care (01) ==
LOC: ED 09:42
DX: G89.29 Other chronic pain (principal); M79.602 Pain in left arm; R10.13 Epigastric pain; R07.89 Other chest pain; M79.7 Fibromyalgia; I10 Essential (primary) hypertension; K21.9 Gastro-esophageal reflux disease without esophagitis; E78.5 Hyperlipidemia, unspecified; E66.01 Morbid (severe) obesity due to excess calories; I25.10 Atherosclerotic heart disease of native coronary artery without angina pectoris; F41.9 Anxiety disorder, unspecified; Z79.899 Other long term (current) drug therapy; Z79.82 Long term (current) use of aspirin; Z98.61 Coronary angioplasty status; Z98.890 Other specified postprocedural states; Z90.49 Acquired absence of other specified parts of digestive tract; Z98.51 Tubal ligation status

== ENCOUNTER 2020-06-02 11:35 | Emergency (ER) | payer OTHER ==
[~2020-06-02] VITALS: Ht 157.4 cm; Wt 117.9 kg
[~2020-06-02 11:35] MED LIST changes: +CYCLOBENZAPRINE5 M3 PO; +NAPROXEN250 MG PO
[2020-06-02 11:41] VITALS: BP 116/112
== END 2020-06-02 13:21 | disposition home or self-care (01) ==
LOC: ED 11:35
DX: M75.92 Shoulder lesion, unspecified, left shoulder (principal)

== ENCOUNTER 2020-06-16 10:19 | Emergency (ER) | payer OTHER ==
[2020-06-16 10:19] VITALS: BP 150/81
[2020-06-16] MEDS ORDERED: TYLENOL325 M1 PO (10:33)
[2020-06-16] MEDS ORDERED: CYCLOBENZAPRINE5 M3 PO (10:33)
[2020-06-16] MEDS ORDERED: NAPROXEN250 MG PO (10:33)
== END 2020-06-16 11:30 | disposition home or self-care (01) ==
LOC: ED 10:19
DX: M54.6 Pain in thoracic spine (principal); M79.602 Pain in left arm; R10.13 Epigastric pain; I10 Essential (primary) hypertension; M79.7 Fibromyalgia; E78.5 Hyperlipidemia, unspecified; E66.01 Morbid (severe) obesity due to excess calories

== ENCOUNTER 2020-06-21 03:28 | Emergency (ER) | payer OTHER ==
[~2020-06-21] VITALS: Ht 157.4 cm; Wt 118.8 kg
[2020-06-21 04:22] VITALS: BP 145/82
[2020-06-21 05:22] LABS: ALBUMIN 3.4 gm/dl (3.1-4.5); ALKALINE PHOSPHATASE 62 U/L (45-117); BUN 13 mg/dl (7-24); CHLORIDE 107 mmol/L (98-107); CREATININE 0.87 mg/dL (0.55-1.02); POTASSIUM 4.1 mmol/L (3.5-5.1); SGOT/AST 73 IU/L (3-35); SGPT/ALT 113 U/L (12-78); SODIUM 140 mmol/L (136-145); TOTAL PROTEIN 6.9 gm/dL (6.4-8.2)
[2020-06-21 05:26] LABS: TROPONIN I < 0.015 ng/ml (<0.045)
[2020-06-21 05:56] LABS: BASO # 0.1 10*3/uL (0.0-0.1); BASO % 0.9 % (0.0-1.0); EOS # 0.6 10*3/uL (0.0-0.4); EOS % 8.9 % (1.0-4.0); LYMPH # 2.5 10*3/uL (1.3-4.4); LYMPH % 36.5 % (27.0-41.0); MEAN CELL VOLUME 80.5 fl (81.0-99.0); MEAN CORPUSCULAR HGB 24.5 pg (27.0-31.0); MEAN CORPUSCULAR HGB CONC 30.5 g/dl (33.0-37.0); MEAN PLATELET VOLUME 9.9 fl (9.6-12.3); MONO # 0.5 10*3/uL (0.1-1.0); MONO % 7.7 % (3.0-9.0); NEUT # 3.1 10*3/uL (2.3-7.9); NEUT % 45.3 % (47.0-73.0); PLATELET COUNT AUTOMATED 217 10*3/uL (130-400); RED BLOOD COUNT 5.22 10*6/uL (4.10-5.10); WHITE BLOOD COUNT 6.9 10*3/uL (4.8-10.8)
== END 2020-06-21 07:54 | disposition home or self-care (01) ==
LOC: ED 03:28
PROVIDERS: Emergency Medicine
DX: R07.89 Other chest pain (principal); G89.29 Other chronic pain; M79.7 Fibromyalgia; K21.9 Gastro-esophageal reflux disease without esophagitis; I10 Essential (primary) hypertension; E66.01 Morbid (severe) obesity due to excess calories; Z79.82 Long term (current) use of aspirin; Z98.51 Tubal ligation status; Z98.890 Other specified postprocedural states; Z79.899 Other long term (current) drug therapy

== ENCOUNTER 2020-07-12 17:56 | Emergency (ER) | payer OTHER ==
[2020-07-12 18:35] LABS: BASO # 0.1 10*3/uL (0.0-0.1); BASO % 0.9 % (0.0-1.0); EOS # 0.4 10*3/uL (0.0-0.4); EOS % 6.8 % (1.0-4.0); HEMATOCRIT 39.7 % (37.0-47.0); LYMPH # 2.2 10*3/uL (1.3-4.4); LYMPH % 33.7 % (27.0-41.0); MEAN CELL VOLUME 79.4 fl (81.0-99.0); MEAN CORPUSCULAR HGB 25.2 pg (27.0-31.0); MEAN CORPUSCULAR HGB CONC 31.7 g/dl (33.0-37.0); MEAN PLATELET VOLUME 9.9 fl (9.6-12.3); MONO # 0.5 10*3/uL (0.1-1.0); MONO % 8.2 % (3.0-9.0); NEUT # 3.3 10*3/uL (2.3-7.9); NEUT % 50.2 % (47.0-73.0); PLATELET COUNT AUTOMATED 201 10*3/uL (130-400); RED CELL DISTRI WIDTH 14.4 % (0-14.5); WHITE BLOOD COUNT 6.5 10*3/uL (4.8-10.8)
[2020-07-12 18:46] LABS: ACT PARTIAL THROMBO TIME 22.2 SECONDS (20.0-32.1)
[2020-07-12 18:51] LABS: ALBUMIN 3.3 gm/dl (3.1-4.5); ALKALINE PHOSPHATASE 65 U/L (45-117); BUN 13 mg/dl (7-24); CHLORIDE 106 mmol/L (98-107); CREATININE 0.98 mg/dL (0.55-1.02); SGOT/AST 124 IU/L (3-35); SGPT/ALT 140 U/L (12-78); SODIUM 139 mmol/L (136-145); TOTAL PROTEIN 7.2 gm/dL (6.4-8.2)
[2020-07-12 19:04] LABS: TROPONIN I < 0.015 ng/ml (<0.045)
[2020-07-12 21:20] VITALS: BP 164/76
== END 2020-07-12 22:30 | disposition home or self-care (01) ==
LOC: ED 17:56
PROVIDERS: Internal Medicine
DX: R07.89 Other chest pain (principal); K21.9 Gastro-esophageal reflux disease without esophagitis; I10 Essential (primary) hypertension; F41.9 Anxiety disorder, unspecified; I25.10 Atherosclerotic heart disease of native coronary artery without angina pectoris; Z79.899 Other long term (current) drug therapy

== ENCOUNTER 2020-08-23 06:44 | Emergency (ER) | payer OTHER ==
[~2020-08-23] VITALS: Ht 157.4 cm; Wt 114.8 kg
[2020-08-23 06:46] VITALS: BP 140/68
[2020-08-23 07:13] LABS: BASO # 0.1 10*3/uL (0.0-0.1); BASO % 1.1 % (0.0-1.0); EOS # 0.1 10*3/uL (0.0-0.4); EOS % 1.6 % (1.0-4.0); HEMATOCRIT 41.8 % (37.0-47.0); LYMPH # 2.2 10*3/uL (1.3-4.4); MEAN CELL VOLUME 79.6 fl (81.0-99.0); MEAN CORPUSCULAR HGB 24.4 pg (27.0-31.0); MEAN CORPUSCULAR HGB CONC 30.6 g/dl (33.0-37.0); MEAN PLATELET VOLUME 9.9 fl (9.6-12.3); MONO # 0.5 10*3/uL (0.1-1.0); MONO % 6.7 % (3.0-9.0); NEUT # 4.9 10*3/uL (2.3-7.9); NEUT % 62.1 % (47.0-73.0); PLATELET COUNT AUTOMATED 192 10*3/uL (130-400); RED BLOOD COUNT 5.25 10*6/uL (4.10-5.10); RED CELL DISTRI WIDTH 14.6 % (0-14.5); WHITE BLOOD COUNT 7.9 10*3/uL (4.8-10.8)
[2020-08-23 07:22] LABS: ACT PARTIAL THROMBO TIME 22.2 SECONDS (20.0-32.1)
[2020-08-23 07:27] LABS: ALBUMIN 3.4 gm/dl (3.1-4.5); ALKALINE PHOSPHATASE 63 U/L (45-117); BUN 22 mg/dl (7-24); CHLORIDE 106 mmol/L (98-107); CREATININE 1.04 mg/dL (0.55-1.02); POTASSIUM 4.1 mmol/L (3.5-5.1); SGOT/AST 43 IU/L (3-35); SGPT/ALT 111 U/L (12-78); SODIUM 139 mmol/L (136-145)
[2020-08-23 07:28] LABS: TROPONIN I < 0.015 ng/ml (<0.045)
== END 2020-08-23 08:30 | disposition home or self-care (01) ==
LOC: ED 06:44
PROVIDERS: Emergency Medicine
DX: R07.9 Chest pain, unspecified (principal); K21.9 Gastro-esophageal reflux disease without esophagitis; I10 Essential (primary) hypertension; F41.9 Anxiety disorder, unspecified; I25.10 Atherosclerotic heart disease of native coronary artery without angina pectoris; Z90.49 Acquired absence of other specified parts of digestive tract; Z98.890 Other specified postprocedural states; Z79.899 Other long term (current) drug therapy; Z95.818 Presence of other cardiac implants and grafts

== ENCOUNTER 2020-08-27 14:03 | Emergency (ER) | payer OTHER ==
[2020-08-27 14:11] VITALS: BP 156/79
[2020-08-27] MEDS ORDERED: IBUPROFEN600 MG PO (17:08)
== END 2020-08-27 17:17 | disposition home or self-care (01) ==
LOC: ED 14:03
DX: G89.29 Other chronic pain (principal); M79.602 Pain in left arm; R07.89 Other chest pain; Z79.899 Other long term (current) drug therapy; Z79.82 Long term (current) use of aspirin; Z98.61 Coronary angioplasty status; Z90.49 Acquired absence of other specified parts of digestive tract; Z98.890 Other specified postprocedural states; Z98.51 Tubal ligation status

== ENCOUNTER 2020-08-30 22:32 | Emergency (ER) | payer OTHER ==
[~2020-08-30] VITALS: Ht 167.6 cm; Wt 90.7 kg
[~2020-08-30 22:32] MED LIST changes: +IBUPROFEN600 MG PO
[2020-08-30 22:33] VITALS: BP 134/68
[2020-08-30] MEDS ORDERED: NAPROXEN250 MG PO (22:47)
== END 2020-08-30 23:23 | disposition home or self-care (01) ==
LOC: ED 22:32
DX: M79.642 Pain in left hand (principal); G89.29 Other chronic pain; K21.9 Gastro-esophageal reflux disease without esophagitis; I10 Essential (primary) hypertension; F41.9 Anxiety disorder, unspecified; I25.10 Atherosclerotic heart disease of native coronary artery without angina pectoris; Z79.899 Other long term (current) drug therapy; Z98.890 Other specified postprocedural states

== ENCOUNTER 2020-09-09 21:40 | Emergency (ER) | payer OTHER ==
[~2020-09-09] VITALS: Ht 165.1 cm; Wt 127.0 kg
[2020-09-09 22:01] VITALS: BP 142/80
== END 2020-09-09 22:15 | disposition home or self-care (01) ==
LOC: ED 21:40
DX: G89.29 Other chronic pain (principal); M79.602 Pain in left arm; Z90.49 Acquired absence of other specified parts of digestive tract; Z98.890 Other specified postprocedural states; Z98.51 Tubal ligation status; Z79.899 Other long term (current) drug therapy

== ENCOUNTER 2020-10-02 09:03 | Emergency (ER) | payer OTHER ==
[~2020-10-02] VITALS: Ht 162.5 cm; Wt 114.8 kg
[2020-10-02 10:41] LABS: BASO # 0.1 10*3/uL (0.0-0.1); BASO % 1.3 % (0.0-1.0); EOS # 0.3 10*3/uL (0.0-0.4); EOS % 4.9 % (1.0-4.0); HEMATOCRIT 41.2 % (37.0-47.0); LYMPH % 32.9 % (27.0-41.0); MEAN CELL VOLUME 77.6 fl (81.0-99.0); MEAN CORPUSCULAR HGB 23.9 pg (27.0-31.0); MEAN CORPUSCULAR HGB CONC 30.8 g/dl (33.0-37.0); MEAN PLATELET VOLUME 9.9 fl (9.6-12.3); MONO # 0.5 10*3/uL (0.1-1.0); MONO % 8.4 % (3.0-9.0); NEUT # 3.1 10*3/uL (2.3-7.9); PLATELET COUNT AUTOMATED 179 10*3/uL (130-400); RED BLOOD COUNT 5.31 10*6/uL (4.10-5.10)
[2020-10-02 10:52] LABS: ACT PARTIAL THROMBO TIME 23.3 SECONDS (20.0-32.1)
[2020-10-02 10:59] LABS: ALBUMIN 3.5 gm/dl (3.1-4.5); BUN 11 mg/dl (7-24); CHLORIDE 109 mmol/L (98-107); CREATININE 1.06 mg/dL (0.55-1.02); LIPASE 134 U/L (73-393); POTASSIUM 3.8 mmol/L (3.5-5.1); SGOT/AST 83 IU/L (3-35); SGPT/ALT 122 U/L (12-78); SODIUM 139 mmol/L (136-145); TOTAL PROTEIN 6.7 gm/dL (6.4-8.2)
[2020-10-02 11:00] LABS: ALKALINE PHOSPHATASE 69 U/L (45-117)
[2020-10-02 11:05] LABS: TROPONIN I < 0.015 ng/ml (<0.045)
[2020-10-02 13:20] VITALS: BP 132/80
[2020-10-02] MEDS ORDERED: PREDNISONE50 MG PO (13:59)
== END 2020-10-02 14:15 | disposition home or self-care (01) ==
LOC: ED 09:03
PROVIDERS: Emergency Medicine
DX: R07.89 Other chest pain (principal); M54.6 Pain in thoracic spine; Z90.49 Acquired absence of other specified parts of digestive tract; Z98.890 Other specified postprocedural states; Z98.51 Tubal ligation status; Z79.82 Long term (current) use of aspirin; Z79.899 Other long term (current) drug therapy

== ENCOUNTER 2020-11-30 22:45 | Emergency (ER) | payer OTHER ==
[~2020-11-30 22:45] MED LIST changes: +PREDNISONE50 MG PO
[2020-11-30 23:30] LABS: BASO # 0.1 10*3/uL (0.0-0.1); BASO % 1.1 % (0.0-1.0); EOS # 0.3 10*3/uL (0.0-0.4); EOS % 3.7 % (1.0-4.0); HEMATOCRIT 38.1 % (37.0-47.0); LYMPH # 2.9 10*3/uL (1.3-4.4); MEAN CELL VOLUME 77.6 fl (81.0-99.0); MEAN CORPUSCULAR HGB 23.8 pg (27.0-31.0); MEAN CORPUSCULAR HGB CONC 30.7 g/dl (33.0-37.0); MEAN PLATELET VOLUME 10.1 fl (9.6-12.3); MONO # 0.6 10*3/uL (0.1-1.0); MONO % 8.6 % (3.0-9.0); NEUT # 3.1 10*3/uL (2.3-7.9); NEUT % 44.5 % (47.0-73.0); PLATELET COUNT AUTOMATED 161 10*3/uL (130-400); RED BLOOD COUNT 4.91 10*6/uL (4.10-5.10); RED CELL DISTRI WIDTH 14.4 % (0-14.5)
[2020-11-30 23:47] LABS: ALBUMIN 3.3 gm/dl (3.1-4.5); ALKALINE PHOSPHATASE 75 U/L (45-117); BUN 15 mg/dl (7-24); CHLORIDE 109 mmol/L (98-107); CREATININE 0.98 mg/dL (0.55-1.02); POTASSIUM 3.6 mmol/L (3.5-5.1); SGOT/AST 84 IU/L (3-35); SGPT/ALT 106 U/L (12-78); SODIUM 139 mmol/L (136-145); TOTAL PROTEIN 6.7 gm/dL (6.4-8.2)
[2020-11-30 23:50] LABS: TROPONIN I < 0.015 ng/ml (<0.045)
[2020-12-01 03:22] VITALS: BP 146/87
== END 2020-12-01 03:44 | disposition home or self-care (01) ==
LOC: ED 22:45
PROVIDERS: Emergency Medicine
DX: I10 Essential (primary) hypertension (principal); R07.89 Other chest pain; M79.7 Fibromyalgia; K21.9 Gastro-esophageal reflux disease without esophagitis; E78.5 Hyperlipidemia, unspecified; E66.01 Morbid (severe) obesity due to excess calories; Z79.899 Other long term (current) drug therapy; Z79.82 Long term (current) use of aspirin; Z98.61 Coronary angioplasty status; Z90.49 Acquired absence of other specified parts of digestive tract; Z98.890 Other specified postprocedural states

== ENCOUNTER 2020-12-21 22:21 | Emergency (ER) | payer OTHER ==
[~2020-12-21] VITALS: Ht 157.4 cm; Wt 120.2 kg
[2020-12-21 22:29] VITALS: BP 150/85
[2020-12-21 23:42] LABS: BASO # 0.1 10*3/uL (0.0-0.1); BASO % 0.8 % (0.0-1.0); EOS # 0.2 10*3/uL (0.0-0.4); EOS % 3.2 % (1.0-4.0); HEMATOCRIT 39.7 % (37.0-47.0); LYMPH # 2.5 10*3/uL (1.3-4.4); MEAN CELL VOLUME 77.5 fl (81.0-99.0); MEAN CORPUSCULAR HGB 23.6 pg (27.0-31.0); MEAN CORPUSCULAR HGB CONC 30.5 g/dl (33.0-37.0); MEAN PLATELET VOLUME 10.3 fl (9.6-12.3); MONO # 0.6 10*3/uL (0.1-1.0); MONO % 8.9 % (3.0-9.0); NEUT # 3.1 10*3/uL (2.3-7.9); NEUT % 47.8 % (47.0-73.0); PLATELET COUNT AUTOMATED 168 10*3/uL (130-400); RED BLOOD COUNT 5.12 10*6/uL (4.10-5.10); RED CELL DISTRI WIDTH 14.7 % (0-14.5); WHITE BLOOD COUNT 6.5 10*3/uL (4.8-10.8)
[2020-12-21 23:58] LABS: ALBUMIN 3.5 gm/dl (3.1-4.5); ALKALINE PHOSPHATASE 71 U/L (45-117); BUN 12 mg/dl (7-24); CHLORIDE 110 mmol/L (98-107); CREATININE 0.99 mg/dL (0.55-1.02); LIPASE 188 U/L (73-393); POTASSIUM 3.8 mmol/L (3.5-5.1); SGOT/AST 82 IU/L (3-35); SGPT/ALT 109 U/L (12-78); SODIUM 140 mmol/L (136-145); TOTAL PROTEIN 6.9 gm/dL (6.4-8.2); TROPONIN I < 0.015 ng/ml (<0.045)
== END 2020-12-22 02:26 | disposition home or self-care (01) ==
LOC: ED 22:21
PROVIDERS: Physician Assistant
DX: R07.89 Other chest pain (principal); M79.602 Pain in left arm; Z79.899 Other long term (current) drug therapy; Z79.82 Long term (current) use of aspirin; Z98.61 Coronary angioplasty status; Z98.890 Other specified postprocedural states; Z90.49 Acquired absence of other specified parts of digestive tract; Z98.51 Tubal ligation status

== ENCOUNTER 2021-02-12 18:34 | Emergency (ER) | payer OTHER ==
[2021-02-12 18:38] VITALS: BP 155/79
[2021-02-12] MEDS ORDERED: MEDROL DOSEPAK4 MG PO (21:17)
[2021-02-12] MEDS ORDERED: NAPROSYN500 MG PO (21:17)
== END 2021-02-12 21:28 | disposition home or self-care (01) ==
LOC: ED 18:34
DX: M54.12 Radiculopathy, cervical region (principal); R51.9 Headache, unspecified; Z79.899 Other long term (current) drug therapy; Z79.82 Long term (current) use of aspirin; Z98.61 Coronary angioplasty status; Z98.890 Other specified postprocedural states; Z90.49 Acquired absence of other specified parts of digestive tract; Z98.51 Tubal ligation status

== ENCOUNTER → 2021-09-30 | Outpatient (CLI) | payer OTHER | END | disposition home or self-care (01) | LOC: MAMMO 14:30 | PROVIDERS: ATTEND Physician Assistant | DX: Z12.31 Encounter for screening mammogram for malignant neoplasm of breast (principal); N64.89 Other specified disorders of breast ==

== ENCOUNTER → 2021-11-19 | Outpatient (CLI) | payer OTHER | END | disposition home or self-care (01) | LOC: CARD 13:00 | PROVIDERS: ATTEND Internal Medicine Cardiovascular Disease | DX: I34.0 Nonrheumatic mitral (valve) insufficiency (principal); Z86.79 Personal history of other diseases of the circulatory system ==

== ENCOUNTER → 2022-02-11 | Outpatient (CLI) | payer OTHER | END | disposition home or self-care (01) | LOC: RAD 09:49 | PROVIDERS: ATTEND Physician Assistant | DX: M47.812 Spondylosis without myelopathy or radiculopathy, cervical region (principal); M48.02 Spinal stenosis, cervical region ==

== ENCOUNTER 2022-04-17 21:51 | Emergency (ER) | payer OTHER ==
[~2022-04-17] VITALS: Ht 160 cm; Wt 95.3 kg
[2022-04-17 21:59] VITALS: BP 142/80
== END 2022-04-17 22:52 | disposition home or self-care (01) ==
LOC: ED 21:51
DX: S92.512A Displaced fracture of proximal phalanx of left lesser toe(s), initial encounter for closed fracture (principal); Z90.49 Acquired absence of other specified parts of digestive tract; Z98.51 Tubal ligation status; Z98.890 Other specified postprocedural states; W22.8XXA Striking against or struck by other objects, initial encounter; Y93.89 Activity, other specified; Y92.89 Other specified places as the place of occurrence of the external cause; Y99.8 Other external cause status

== ENCOUNTER → 2022-04-30 | Outpatient (CLI) | payer OTHER | END | disposition home or self-care (01) | LOC: ORTHO 00:59 | PROVIDERS: ATTEND Orthopaedic Surgery | DX: M25.512 Pain in left shoulder (principal) ==

== ENCOUNTER → 2022-05-07 | Outpatient (CLI) | payer OTHER | END | disposition home or self-care (01) | LOC: MRI 15:00 | PROVIDERS: ATTEND Physician Assistant | DX: M47.812 Spondylosis without myelopathy or radiculopathy, cervical region (principal); M48.02 Spinal stenosis, cervical region; M25.78 Osteophyte, vertebrae ==

== ENCOUNTER 2022-06-25 14:54 | Emergency (ER) | payer OTHER ==
[~2022-06-25] VITALS: Wt 110.7 kg
[2022-06-25 15:08] VITALS: BP 151/78
[2022-06-25 16:04] LABS: BASO % 0.8 % (0.0-1.0); EOS # 0.2 10*3/uL (0.0-0.4); EOS % 4.8 % (1.0-4.0); HEMATOCRIT 38.4 % (37.0-47.0); LYMPH % 42.2 % (27.0-41.0); MEAN CELL VOLUME 77.1 fl (81.0-99.0); MEAN CORPUSCULAR HGB 25.1 pg (27.0-31.0); MEAN CORPUSCULAR HGB CONC 32.6 g/dl (33.0-37.0); MEAN PLATELET VOLUME 9.4 fl (9.6-12.3); MONO # 0.3 10*3/uL (0.1-1.0); MONO % 6.9 % (3.0-9.0); NEUT # 2.2 10*3/uL (2.3-7.9); NEUT % 45.1 % (47.0-73.0); PLATELET COUNT AUTOMATED 94 10*3/uL (130-400); RED BLOOD COUNT 4.98 10*6/uL (4.10-5.10); RED CELL DISTRI WIDTH 14.9 % (0-14.5); WHITE BLOOD COUNT 4.8 10*3/uL (4.8-10.8)
[2022-06-25 16:27] LABS: ALKALINE PHOSPHATASE 89 U/L (46-116); BUN 14 mg/dl (9-23); CHLORIDE 104 mmol/L (98-107); POTASSIUM 3.9 mmol/L (3.4-5.1); SGPT/ALT 82 U/L (10-49); TOTAL PROTEIN 6.4 gm/dL (6.0-8.0)
[2022-06-25] MEDS ORDERED: Motrin,Rufen800 MG PO (17:24)
== END 2022-06-25 17:55 | disposition home or self-care (01) ==
LOC: ED 14:54
PROVIDERS: Emergency Medicine
DX: R07.89 Other chest pain (principal); Z90.49 Acquired absence of other specified parts of digestive tract; Z98.890 Other specified postprocedural states; Z98.51 Tubal ligation status

== ENCOUNTER 2023-05-12 19:07 | Emergency (ER) | payer OTHER ==
[~2023-05-12] VITALS: Ht 154.9 cm; Wt 99.8 kg
[~2023-05-12 19:07] MED LIST changes: +CIPRO500 MG PO
[2023-05-12 19:54] LABS: BASO # 0.1 10*3/uL (0.0-0.1); EOS # 0.1 10*3/uL (0.0-0.4); EOS % 2.6 % (1.0-4.0); HEMATOCRIT 42.9 % (37.0-47.0); LYMPH # 1.9 10*3/uL (1.3-4.4); LYMPH % 38.8 % (27.0-41.0); MEAN CELL VOLUME 75.9 fl (81.0-99.0); MEAN CORPUSCULAR HGB 24.2 pg (27.0-31.0); MEAN CORPUSCULAR HGB CONC 31.9 g/dl (33.0-37.0); MEAN PLATELET VOLUME 9.8 fl (9.6-12.3); MONO # 0.3 10*3/uL (0.1-1.0); MONO % 6.8 % (3.0-9.0); NEUT # 2.5 10*3/uL (2.3-7.9); NEUT % 50.6 % (47.0-73.0); PLATELET COUNT AUTOMATED 95 10*3/uL (130-400); RED BLOOD COUNT 5.65 10*6/uL (4.10-5.10); RED CELL DISTRI WIDTH 14.7 % (0-14.5)
[2023-05-12 19:59] LABS: ACT PARTIAL THROMBO TIME 25.1 SECONDS (20.0-32.1)
[2023-05-12 20:13] LABS: ALKALINE PHOSPHATASE 109 U/L (46-116); BUN 9 mg/dl (9-23); CHLORIDE 105 mmol/L (98-107); LIPASE 48 U/L (12-53); POTASSIUM 3.7 mmol/L (3.4-5.1); SGPT/ALT 66 U/L (5-49); TOTAL PROTEIN 6.9 gm/dL (6.0-8.0)
[2023-05-12 20:16] LABS: ETHYL ALCOHOL < 3.0 mg/dl (<3)
[2023-05-12 21:13] LABS: BILIRUBIN Negative (Negative); BLOOD Negative (Negative); CLARITY Clear (Clear); COLOR Yellow (Yellow); GLUCOSE Negative (Negative); KETONE Negative (Negative); LEUKO ESTERASE Negative (Negative); NITRITE Negative (Negative); PH 7.5 (4.5-8.0); SPECIFIC GRAVITY >= 1.030 (1.001-1.030)
[2023-05-12 21:21] LABS: URINE AMPHETAMINES Negative (1000ng/ml); URINE BARBITURATES Negative (200ng/ml); URINE BENZODIAZEPINES Negative (200ng/ml); URINE CANNABINOIDS (THC) Negative (50ng/ml); URINE COCAINE Negative (300ng/ml); URINE METHADONE Negative (300ng/ml); URINE OPIATES Negative (300ng/ml); URINE PHENCYCLIDINE Negative (25ng/ml)
[2023-05-12 21:25] LABS: WBC 0-2 wbc/hpf (0-5)
[2023-05-12] MEDS ORDERED: REGLAN10 M1 PO (23:07)
[2023-05-12] MEDS ORDERED: AMOX-CLAV 875-1 EACH PO (23:07)
[2023-05-12 23:44] VITALS: BP 148/75
== END 2023-05-13 01:34 | disposition home or self-care (01) ==
LOC: ED 19:07
PROVIDERS: Internal Medicine
DX: R11.2 Nausea with vomiting, unspecified (principal); K04.7 Periapical abscess without sinus; K02.9 Dental caries, unspecified; R10.10 Upper abdominal pain, unspecified; R03.0 Elevated blood-pressure reading, without diagnosis of hypertension; K21.9 Gastro-esophageal reflux disease without esophagitis; I10 Essential (primary) hypertension; F41.9 Anxiety disorder, unspecified; I25.10 Atherosclerotic heart disease of native coronary artery without angina pectoris; Z95.5 Presence of coronary angioplasty implant and graft; Z98.51 Tubal ligation status; Z90.49 Acquired absence of other specified parts of digestive tract; Z79.899 Other long term (current) drug therapy; R51.9 Headache, unspecified

== ENCOUNTER 2023-11-30 17:44 | Emergency (ER) | payer MEDICARE, OTHER ==
[~2023-11-30] VITALS: Ht 157.4 cm; Wt 102.1 kg
[~2023-11-30 17:44] MED LIST changes: +AMOX-CLAV 875-1 EACH PO; +REGLAN10 M1 PO
[2023-11-30 19:16] VITALS: BP 147/80
[2023-11-30] MEDS ORDERED: WIXELA 250-501 EACH INH (19:17)
[2023-11-30] MEDS ORDERED: CETIRIZINE5 MG PO (19:17)
[2023-11-30] MEDS ORDERED: GLIPIZIDE XL5 M1 PO (19:18)
[2023-11-30] MEDS ORDERED: VENT7GM INH (19:18)
[2023-11-30] MEDS ORDERED: PRILOSEC20 M1 PO (19:18)
[2023-11-30 19:45] LABS: BASO # 0.1 10*3/uL (0.0-0.1); EOS # 0.1 10*3/uL (0.0-0.4); EOS % 2.6 % (1.0-4.0); HEMATOCRIT 44.9 % (37.0-47.0); LYMPH # 2.4 10*3/uL (1.3-4.4); LYMPH % 47.9 % (27.0-41.0); MEAN CELL VOLUME 75.8 fl (81.0-99.0); MEAN CORPUSCULAR HGB 24.3 pg (27.0-31.0); MEAN CORPUSCULAR HGB CONC 32.1 g/dl (33.0-37.0); MEAN PLATELET VOLUME 10.4 fl (9.6-12.3); MONO # 0.4 10*3/uL (0.1-1.0); MONO % 7.5 % (3.0-9.0); NEUT % 40.8 % (47.0-73.0); PLATELET COUNT AUTOMATED 104 10*3/uL (130-400); RED BLOOD COUNT 5.92 10*6/uL (4.10-5.10); RED CELL DISTRI WIDTH 15.1 % (0-14.5); WHITE BLOOD COUNT 4.9 10*3/uL (4.8-10.8)
[2023-11-30 20:02] LABS: ALKALINE PHOSPHATASE 105 U/L (46-116); BUN 10 mg/dl (9-23); CHLORIDE 109 mmol/L (98-107); POTASSIUM 3.8 mmol/L (3.4-5.1); SGPT/ALT 68 U/L (5-49); TOTAL PROTEIN 7.2 gm/dL (6.0-8.0)
[2023-11-30] MEDS ORDERED: Ketorolac Tromethamine 60 MG/2 ML VIAL IM ONE (21:55)
== END 2023-11-30 22:05 | disposition home or self-care (01) ==
LOC: ED 17:44
PROVIDERS: Internal Medicine
DX: R07.89 Other chest pain (principal); M79.622 Pain in left upper arm; N18.31 Chronic kidney disease, stage 3a; R74.01 Elevation of levels of liver transaminase levels; Z79.899 Other long term (current) drug therapy; Z90.49 Acquired absence of other specified parts of digestive tract; Z98.890 Other specified postprocedural states; Z98.51 Tubal ligation status

== ENCOUNTER → 2023-12-31 | Outpatient (CLI) | payer MEDICARE, OTHER ==
[~2023-12-31] MED LIST changes: +CETIRIZINE5 MG PO; +GLIPIZIDE XL5 M1 PO; +PRILOSEC20 M1 PO; +VENT7GM INH; +WIXELA 250-501 EACH INH
== END | disposition home or self-care (01) ==
LOC: MAMMO 11:00
PROVIDERS: ATTEND Physician Assistant
DX: Z12.31 Encounter for screening mammogram for malignant neoplasm of breast (principal)

== ENCOUNTER → 2024-09-29 | Outpatient (CLI) | payer OTHER | END | disposition home or self-care (01) | LOC: US 08:00 | PROVIDERS: ATTEND Physician Assistant | DX: K76.0 Fatty (change of) liver, not elsewhere classified (principal); R19.00 Intra-abdominal and pelvic swelling, mass and lump, unspecified site; Z90.49 Acquired absence of other specified parts of digestive tract ==

== ENCOUNTER → 2024-10-18 | Outpatient (CLI) | payer OTHER ==
[~2024-10-18] MED LIST changes: +FARXIGA10 M1 PO; +ROSUVASTATIN CA20 MG PO; +Regadenoson 0.4 MG/5 ML SYR IV ONE
== END | disposition home or self-care (01) ==
LOC: CARD 00:07
PROVIDERS: ATTEND Internal Medicine Cardiovascular Disease
DX: I25.10 Atherosclerotic heart disease of native coronary artery without angina pectoris (principal); I99.8 Other disorder of circulatory system

== ENCOUNTER → 2024-10-25 | Outpatient (CLI) | payer OTHER ==
[~2024-10-25] MED LIST changes: +IOHEXOL 300 MG/ML 100 ML VIAL IV ONE; +IOHEXOL 300 MG/ML 100 ML VIAL ONE; -Regadenoson 0.4 MG/5 ML SYR IV ONE
== END | disposition home or self-care (01) ==
LOC: CT 10-11 08:00
PROVIDERS: ATTEND Physician Assistant
DX: R16.2 Hepatomegaly with splenomegaly, not elsewhere classified (principal); R19.00 Intra-abdominal and pelvic swelling, mass and lump, unspecified site; K46.9 Unspecified abdominal hernia without obstruction or gangrene; Z90.49 Acquired absence of other specified parts of digestive tract

== ENCOUNTER 2024-11-28 18:31 | Emergency (ER) | payer OTHER ==
[~2024-11-28] VITALS: Wt 103.4 kg
[~2024-11-28 18:31] MED LIST changes: -IOHEXOL 300 MG/ML 100 ML VIAL IV ONE; -IOHEXOL 300 MG/ML 100 ML VIAL ONE
[2024-11-28 18:46] VITALS: BP 156/83
[2024-11-28] MEDS ORDERED: Acetaminophen/Hydrocodone 5 MG/325 MG TABLET PO ONE (19:30)
[2024-11-28] MEDS ORDERED: Ondansetron Hydrochloride 4 MG TAB SL ONE (19:30)
[2024-11-28] MEDS ORDERED: CLINDAMYCIN HCL 300 MG CAPSULE PO ONE (19:30)
[2024-11-28] MEDS ORDERED: CLINDAMYCIN HC300 MG PO (19:35)
== END 2024-11-28 19:50 | disposition home or self-care (01) ==
LOC: ED 18:31
DX: L03.211 Cellulitis of face (principal); K02.9 Dental caries, unspecified; K04.7 Periapical abscess without sinus; I10 Essential (primary) hypertension; K21.9 Gastro-esophageal reflux disease without esophagitis; F41.9 Anxiety disorder, unspecified; I25.10 Atherosclerotic heart disease of native coronary artery without angina pectoris; Z79.899 Other long term (current) drug therapy; Z98.51 Tubal ligation status; Z98.890 Other specified postprocedural states

== ENCOUNTER 2025-01-03 21:40 | Emergency (ER) | payer OTHER ==
[~2025-01-03] VITALS: Ht 157 cm; Wt 102.1 kg
[2025-01-03 21:53] VITALS: BP 156/86
[2025-01-03] MEDS ORDERED: ASPIRIN, CHEWABLE 81 MG TAB PO ONE (22:20)
[2025-01-03 22:32] LABS: BASO # 0.0 10*3/uL (0.0-0.1); BASO % 0.8 % (0.0-1.0); EOS # 0.1 10*3/uL (0.0-0.4); EOS % 3.1 % (1.0-4.0); MEAN CELL VOLUME 74.1 fl (81.0-99.0); MEAN CORPUSCULAR HGB 22.7 pg (27.0-31.0); MEAN PLATELET VOLUME 9.6 fl (9.6-12.3); MONO # 0.3 10*3/uL (0.1-1.0); MONO % 7.5 % (3.0-9.0); NEUT # 2.0 10*3/uL (2.3-7.9); NEUT % 51.0 % (47.0-73.0); NUCLEATED RED BLOOD CELL 0.0 % (0.0-0.0); NUCLEATED RED BLOOD CELL 0.0 10*3/uL (0.0-0.0); PLATELET COUNT AUTOMATED 85 10*3/uL (130-400); RED CELL DISTRI WIDTH 17.2 % (0-14.5)
[2025-01-03 22:52] LABS: BUN 11 mg/dl (9-23)
[2025-01-04 00:03] LABS: BILIRUBIN Negative (Negative); BLOOD Negative (Negative); CLARITY Clear (Clear); COLOR Yellow (Yellow); KETONE Trace (Negative); LEUKO ESTERASE Negative (Negative); NITRITE Negative (Negative); PH 5.5 (4.5-8.0); SPECIFIC GRAVITY >= 1.030 (1.001-1.030); UROBILINOGEN 1.0 E.U./dl (0.0-1.0)
[2025-01-04 00:44] LABS: BACTERIA 1+; EPITHELIAL CELLS 16-20
[2025-01-04 00:45] LABS: WBC 0-2 wbc/hpf (0-5)
== END 2025-01-04 02:10 | disposition left against medical advice (07) ==
LOC: ED 21:40
PROVIDERS: Nurse Practitioner Family
DX: M79.602 Pain in left arm (principal); R73.9 Hyperglycemia, unspecified; Z98.890 Other specified postprocedural states; Z53.29 Procedure and treatment not carried out because of patient's decision for other reasons

== ENCOUNTER 2025-05-16 18:49 | Emergency (ER) | payer OTHER ==
[~2025-05-16] VITALS: Wt 101.6 kg
[2025-05-16 18:58] VITALS: BP 130/68
[2025-05-16] MEDS ORDERED: MAGNESIUM CITRATE 296 ML BOT PO ONE (20:40)
== END 2025-05-16 20:51 | disposition home or self-care (01) ==
LOC: ED 18:49
DX: M79.622 Pain in left upper arm (principal); R14.0 Abdominal distension (gaseous); K59.00 Constipation, unspecified; K21.9 Gastro-esophageal reflux disease without esophagitis; I10 Essential (primary) hypertension; F41.9 Anxiety disorder, unspecified; I25.10 Atherosclerotic heart disease of native coronary artery without angina pectoris; Z90.49 Acquired absence of other specified parts of digestive tract; Z98.890 Other specified postprocedural states